=== PATIENT | female | born 1965 | race Caucasian/White ===

== ENCOUNTER 2018-11-05 20:14 | Inpatient (IN) | payer OTHER ==
[2018-11-05] MEDS ORDERED: IPRATROPIUM/ALBUTEROL 3 ML DEYVIAL IH ONE (20:24)
[2018-11-05] MEDS ORDERED: NS 1,000 ML IV ONE (20:27)
[2018-11-05 20:51] LABS: PLATELET COUNT 183 10^3/uL (150-400)
--- NOTE | 2018-11-05 21:04 | EDPHY ---
HPI/HX/ROS/PE/MDM Narrative: CHIEF COMPLAINT: Difficulty breathing HPI: This patient is a 52 year old female with history of asthma, diabetes, hypertension. She has recently been feeling unwell with cold symptoms. She endorses a productive cough with "foamy white phlegm". This morning, she began to have difficulty breathing. This worsened throughout the day. She took her inhaler as prescribed, but this did not relieve her symptoms so she called for EMS. She endorses some mild chest tightness associated with her difficulty breathing. She denies any recent hospitalizations for asthma. She denies fever. She does note that "its been a while since I've taken my medicines" as she has been under considerable stress at home while caring for family members. She denies any recent trauma. No nausea, vomiting, diarrhea, dysuria, headache, or other associated symptoms. REVIEW OF SYSTEMS: A comprehensive 10 system review of systems is otherwise negative aside from elements mentioned in the history of present illness and medical decision making. PMH: Asthma, diabetes, hypertension SOCIAL HISTORY: PHYSICAL EXAM: General:Patient is alert, in no acute distress. ENT:Eyes are normal to inspection. ENT inspection normal. Neck: Normal inspection. Full range of motion. Respiratory: Poor air movement with wheezes bilaterally and accessory muscle use. Cardiovascular: Regular rate and rhythm. Strong peripheral pulses. Normal cap refill. Abdomen:The abdomen is nontender to palpation. There are no peritoneal signs. There are normal bowel sounds. Back: Normal to inspection. No tenderness to palpation. Skin: Normal color. Hirsutism. No rash. Warm and dry. Extremities: Normal appearance. Full range of motion. Neuro: Oriented x3. Normal motor function. Normal sensory function. ED Course: 52 y/o female with history of asthma, hypertension, diabetes presents with difficulty breathing. On exam, the patient has poor air movement with wheezes bilaterally and accessory muscle use. Patient's SpO2 was initially 78% on room air. This has improved to 91% with supplemental oxygen. Plan for chest x-ray, i- stat chemistries. Plan for DuoNeb administration. On re-eval after initial nebs, air movement much better but significant wheeze. Additional albuterol neb ordered. RA sat 80%. CXR suggests early PNA. Patient lives in car and has only minimal access to O2. I think she would benefit from overnight hospital admission. I have treated her with solumedrol and azithromycin. - Data Points Imaging Results: Imaging Impressions Chest X-Ray 11/05/18 20:27 Impression: 1. Mild cardiac silhouette enlargement. 2. Peribronchial thickening and a suspected early infiltrate at the right lung base. 3. Sequela of old granulomatous disease. Laboratory Results: Laboratory Results 11/05/18 20:30 11/05/18 20:30 11/05/18 11/05/18 11/05/18 20:48 20:30 20:30 WBC 10.39 10^3/uL H 10^3/uL (3.80-9.50) RBC 5.57 10^6/uL H 10^6/uL (4.18-5.33) Hgb 17.2 g/dL H g/dL (12.6-16.3) POC Hgb 19.0 gm/dL H gm/dL (12.6-16.3) Hct 52.2 % H % (38.0-47.0) POC Hct 56 % H % (38-47) MCV 93.7 fL fL (81.5-99.8) MCH 30.9 pg pg (27.9-34.1) MCHC 33.0 g/dL g/dL (32.4-36.7) RDW 17.3 % H % (11.5-15.2) Plt Count 183 10^3/uL 10^3/uL (150-400) MPV 11.8 fL H fL (8.7-11.7) Neut % (Auto) 65.3 % % (39.3-74.2) Lymph % (Auto) 26.4 % % (15.0-45.0) [place] % (Auto) 4.9 % % (4.5-13.0) Eos % (Auto) 1.6 % % (0.6-7.6) Baso % (Auto) 1.2 % % (0.3-1.7) Nucleat RBC Rel Count 0.0 % % (0.0-0.2) Absolute Neuts (auto) 6.79 10^3/uL H 10^3/uL (1.70-6.50) Absolute Lymphs (auto) 2.74 10^3/uL 10^3/uL (1.00-3.00) Absolute Monos (auto) 0.51 10^3/uL 10^3/uL (0.30-0.80) Absolute Eos (auto) 0.17 10^3/uL 10^3/uL (0.03-0.40) Absolute Basos (auto) 0.12 10^3/uL H 10^3/uL (0.02-0.10) Absolute Nucleated RBC 0.00 10^3/uL 10^3/uL (0-0.01) Immature Gran % 0.6 % % (0.0-1.1) Immature Gran # 0.06 10^3/uL 10^3/uL (0.00-0.10) POC Sodium 137 mEq/L mEq/L (135-145) Sodium 132 mEq/L L mEq/L (135-145) POC Potassium 5.1 mEq/L H mEq/L (3.3-5.0) Potassium 5.4 mEq/L H mEq/L (3.5-5.2) POC Chloride 99 mEq/L mEq/L (97-110) Chloride 99 mEq/L mEq/L (97-110) Carbon Dioxide 25 mEq/l mEq/l (22-31) POC Total CO2 28 mEq/L mEq/L (22-31) Anion Gap 8 mEq/L mEq/L (6-14) POC BUN 13 mg/dL mg/dL (7-23) BUN 14 mg/dL mg/dL (7-23) Creatinine 0.7 mg/dL mg/dL (0.6-1.0) POC Creatinine 0.8 mg/dL mg/dL (0.6-1.0) Estimated GFR > 60 Glucose 189 mg/dL H mg/dL (70-100) POC Glucose 192 mg/dL H mg/dL (70-100) Calcium 9.7 mg/dL mg/dL (8.5-10.4) Medications Given: Discontinued Medications Albuterol (Proventil Neb) 3 ml IH EDNOW ONE Stop: 11/05/18 21:14 Last Admin: 11/05/18 21:19 Dose: 3 ml Albuterol/Ipratropium (Duoneb) 6 ml IH EDNOW ONE Stop: 11/05/18 20:25 Last Admin: 11/05/18 20:26 Dose: 6 ml Azithromycin (Zithromax) 500 mg PO EDNOW ONE PRN Reason: Protocol Stop: 11/05/18 21:23 Last Admin: 11/05/18 21:43 Dose: 500 mg Sodium Chloride (Ns) 1,000 mls @ 0 mls/hr IV ONCE ONE; Wide Open PRN Reason: Protocol Stop: 11/05/18 20:28 Last Admin: 11/05/18 20:42 Dose: 1,000 mls Methylprednisolone Sodium Succinate (Solu-Medrol) 125 mg IVP EDNOW ONE Stop: 11/05/18 21:15 Last Admin: 11/05/18 21:19 Dose: 125 mg Point of Care Test Results: Chemistry 11/05/18 20:48 POC Sodium 137 mEq/L mEq/L (135-145) POC Potassium 5.1 mEq/L H mEq/L (3.3-5.0) POC Chloride 99 mEq/L mEq/L (97-110) POC Total CO2 28 mEq/L mEq/L (22-31) POC BUN 13 mg/dL mg/dL (7-23) POC Creatinine 0.8 mg/dL mg/dL (0.6-1.0) POC Glucose 192 mg/dL H mg/dL (70-100) ISTAT H&H 11/05/18 20:48 POC Hgb 19.0 gm/dL H gm/dL (12.6-16.3) POC Hct 56 % H % (38-47) General Time Seen by Provider: 11/05/18 20:23 Initial Vital Signs: Initial Vital Signs Temperature (C) 36.8 C 11/05/18 20:21 Heart Rate 77 11/05/18 20:21 Respiratory Rate 20 11/05/18 20:21 O2 Sat (%) 78 L 11/05/18 20:21 O2 Delivery Mode Nasal Cannula O2 (L/minute) 5 Allergies/Adverse Reactions: No Known Allergies Allergy (Unverified 11/05/18 20:23) Home Medications: Medication Instructions Recorded Azithromycin [Zithromax] 250 mg PO DAILY #6 tab 11/05/18 Departure - Departure Disposition: [facility] Inpatient Acute Clinical Impression: Pneumonia, Exacerbation of asthma Condition: Fair Prescriptions: Azithromycin [Zithromax] 250 mg PO DAILY #6 tab Report Scribed for: Ayo Pereira Report Scribed by: Keshia Crenshaw Date of Report: 11/05/18 Time of Report: 21:04 Physician Review and Approval Statement: Portions of this note were transcribed by an ED scribe. I personally performed the history, physical exam, and medical decision making; and confirm the accuracy of the information in the transcribed note.
[2018-11-05] MEDS ORDERED: ALBUTEROL 3 ML DEYVIAL IH ONE (21:13)
[2018-11-05] MEDS ORDERED: methylPREDNISolone SOD SUCC 125 MG/2 ML VIAL IVP ONE (21:14)
[2018-11-05] MEDS ORDERED: AZITHROMYCIN 250 MG TAB PO ONE (21:22)
[2018-11-05] MEDS ORDERED: ACETAMINOPHEN 325 MG TAB PO PRN (23:13)
[2018-11-05] MEDS ORDERED: ONDANSETRON DISINTEGRATING 4 MG TAB PO PRN (23:13)
[2018-11-05] MEDS ORDERED: diphenhydrAMINE 25 MG CAP PO PRN (23:13)
[2018-11-05] MEDS ORDERED: ONDANSETRON 4 MG/2 ML VIAL IVP PRN (23:13)
[2018-11-05] MEDS ORDERED: NS 1,000 ML IV SCH (23:15)
[2018-11-05] MEDS ORDERED: guaiFENesin 600 MG TAB.ER PO PRN (23:20)
[2018-11-05] MEDS ORDERED: BENZONATATE 100 MG CAP PO PRN (23:20)
[2018-11-06] MEDS ORDERED: D50W 25 GM/50 ML SYR IVP PRN (03:52)
[2018-11-06] MEDS ORDERED: hydrALAZINE 10 MG TAB PO PRN (03:53)
[2018-11-06] MEDS: LISINOPRIL 10 MG TAB PO SCH ×2 (04:18→09:48)
[2018-11-06 04:40] LABS: PLATELET COUNT 139 10^3/uL (150-400)
--- NOTE | 2018-11-06 05:19 | GHP ---
[f rep st] HISTORY AND PHYSICAL DATE OF ADMISSION: 11/05/2018 The patient without PCP. She recently located to [place] from [place] with her adult son. EMR was arsh sprague and case discussed with accepting hospitalist. CHIEF COMPLAINT: Shortness of breath and cough. HISTORY OF PRESENT ILLNESS: A very pleasant 52-year-old female with past medical history significant for asthma, diabetes, depression, stress response, HTN, HLD, who [facility] with complaints of several days of coughing that is nonproductive. Patient denies any fever s or chills. She reports some coughing of clear white sputum. She has been utilizing Mucinex over-t he-counter with improvement in nasal congestion. She denies any known sick contacts. No fevers or c hills. No nausea, vomiting or diarrhea. Patient was using her inhaler without significant improveme nt in her symptoms. Her respiratory status continued to worsen and she presented to the emergency de partment as she felt she could not breathe. In the emergency department, the patient was noted to be saturating in the 80s on room air. She does not typically wear any oxygen at home. She did improve with placement on 4 L per minute. Patient c urrently without a permanent address. She is living out of her car with her son as she just recently relocated from [place] while she waits for a disability check. REVIEW OF SYSTEMS: 10 systems reviewed, negative except as noted above. ALLERGIES: No known drug allergies. HOME MEDICATIONS: Med rec is not yet reconciled. The patient does note that for blood pressure, she takes lisinopril 10 mg, amlodipine 10 mg. PAST MEDICAL HISTORY: Significant for diabetes, depression, carpal tunnel syndrome, HTN, HLD, asthma without any history of intubation, but does have a remote history of hospitalization. PAST SURGICAL HISTORY: Significant for carpal tunnel release. FAMILY HISTORY: On mother's side, there are family members with breast cancer and CKD. Patient's mo ther had a diagnosis of asthma. Father with history of diabetes. SOCIAL HISTORY: The patient again has currently relocated from [place], living with her son in a car while she awaits her disability check and son's check from for housing. She does smoke to [place], but she reports she is a "stress smoker," today only smoked 1 cigarette. She denies any illic it drug use. No alcohol abuse. CODE STATUS: Full. PHYSICAL EXAMINATION: VITAL SIGNS: Upon arrival to the emergency department, blood pressure 152/100 , heart rate 77, respiratory rate 20, O2 sat 78% on room air with a temperature of 36.8. Vital signs currently available: Blood pressure 167/118, heart rate 73, respiratory rate 20, O2 sat % on 4 L nasal cannula, temperature 36.6. GENERAL: No acute distress, pleasant, morbidly obese femjaja cowan, who is laying quietly on her right side. She does have some increased work of breathing, but is a ble to speak in full sentences. She has a nasal cannula in place. HEENT: Head: Normocephalic/atra umatic. Eyes: Extraocular muscles grossly intact. Pupils are equal, round, and reactive to light b ilaterally and symmetric. No scleral icterus or conjunctival injection. ENT: Mucous membranes appe ar moist. No pharyngeal erythema or exudates. Dentition in fair condition. CARDIOVASCULAR: Regula r rate and rhythm without any murmurs, rubs or gallops appreciated. tenderness to palpati on. RESPIRATORY: Patient with significantly diminished air movement bibasilarly. She does have ins piratory, expiratory wheezing on the anterior upper lung johnson. ABDOMEN: Obese, soft, nontender to palpation. No rebound, guarding or mass appreciated. Positive bowel sounds. : No suprapubic te nderness to palpation. No Moraes catheter in place. MUSCULOSKELETAL: Strength grossly intact, 4/5 t o 5/5 in upper and lower extremities, bilaterally and symmetric. NEUROLOGIC: Grossly nonfocal, no f acial droop. Moves all extremities. LABORATORY STUDIES: WBC 10.39, H and H 17.2 and 52.2, MCV of 93.7, platelet count 183, neutrophil pe rcent normal. Sodium is 132, potassium 5.4, chloride is 99, CO2 is 25, anion gap of 8, BUN 14, creat inine 0.7, GFR greater than 60, glucose 189, calcium 7.7. Chest x-ray: Image report reviewed by myself. Mild cardiac silhouette enlargement. Peribronchiolar thickening and a suspected early infiltrate in the right lung base. Sequelae of old granulomatous d isease. 1. Right lower lobe pneumonia. Patient without significant leukocytosis. She has been afebrile. N o significant production of sputum. We will check a procalcitonin in the morning. For now, continue patient's azithromycin and Rocephin. She is at higher risk for secondary infection, so she would li von benefit from continued antibiotic use for a few more days. 2. Asthma with exacerbation. Continue steroids, nebulizers, oxygen p.r.n. 3. Hypoxia. No large consolidations. Continue to titrate patient's oxygen. She is down now from 5 to 4. Discussed with the patient that at this point, it would likely be difficult to obtain oxygen for her to discharge early. I did request Case Management and Social Work consultation to see what i s available. We will continue to titrate down on O2 requirements if possible to maintain sats greate r than 90. 4. Benign essential hypertension. Blood pressure is slightly elevated likely related to steroids, n ebulizer treatments. 5. Hyperlipidemia. Resume home medications when ready. 6. Fluids, electrolytes, nutrition. Additional IV fluids overnight for 1 bag. Advance diet in the morning. Electrolytes will be monitored, replaced as needed. 7. Code status full. The patient would like to have a conversation with her son before making that determination. She reports that if it was just her, then she would opt to be a do not resuscitate/do not intubate. She will let us know what her decision is. I did offer to have [facility] and/o r additional discussion when the son is here as patient reports she is finding it difficult to figure out how to have this conversation. 8. Disposition. Patient admitted to observation status on the Med/Surg floor pending repeat evaluat ion later this morning and improvement. /[id number]/MODL
[2018-11-06] MEDS ORDERED: LISINOPRIL 10 MG TAB PO SCH (09:00)
[2018-11-06] MEDS: INSULIN LISPRO 100 UNIT/ML SC SCH ×4 (09:05→20:51)
[2018-11-06] MEDS: predniSONE 20 MG TAB PO SCH (09:47)
[2018-11-06] MEDS: ENOXAPARIN 40 MG/0.4 ML SYR SC SCH (09:48)
[2018-11-06] MEDS: ALBUTEROL 3 ML DEYVIAL IH PRN ×3 (09:56→22:10)
[2018-11-06] MEDS ORDERED: ALBUTEROL 60 PUFFS/8 GM MDI IH PRN (10:45)
--- NOTE | 2018-11-06 10:49 | HOSPPROG ---
Hospitalist Progress Note Assessment/Plan: 52y female with c/o SOB. #PNA -cont abx #SOB -supportive care #Asthma exac -steriods, nebs #Acute hypoxia -multifactorial -cont support #HTN -stable #Dispo -unclear -needs supportive care Subjective: Still SOB. Objective: Vital Signs Temp Pulse Resp BP Pulse Ox 36.7 C 63 20 147/94 H 93 11/06/18 07:49 11/06/18 09:57 11/06/18 09:57 11/06/18 07:49 11/06/18 09:57 Laboratory Results 11/06/18 04:17 11/06/18 04:17 11/05/18 11/06/18 11/07/18 05:59 05:59 05:59 Intake Total 2000 Balance 1999 - Physical Exam Constitutional: not in pain, obese Eyes: PERRL, anicteric sclera Ears, Nose, Mouth, Throat: moist mucous membranes, hearing normal Cardiovascular: edema, No JVD Respiratory: reduced air movement, expiratory wheeze Gastrointestinal: No tenderness, No ascites Skin: warm, normal color Musculoskeletal: generalized weakness Neurologic: AAOx3 Psychiatric: not anxious, not encephalopathic ICD10 Worksheet Patient Problems: Problems Problem Status Onset Pneumonia Acute Exacerbation of asthma Acute
--- NOTE | 2018-11-06 14:50 | ASMTCMCOM ---
JESSICA Note CM Note Notes: Met with pt in her room. Pt confirms that she is currently homeless following a move from [place] and lives in her car with her 23-year-old son, Isacc Burger [phone]. She states that she is waiting for her next disability check to arrive and that this is the reason she is currently homeless. Disability checks are her only means of income. Pt describes son as supportive but rest of family (in [place]) as "not good for my mental health" which is why she left the state. Pt states that the nature of her disability is her asthma and her "useless" left hand that she says was damaged during surgery for carpal tunnel syndrome. Pt uses 2.5L of O2 at night normally, but in [place] she has noticed that she also sometimes needs it during the day. She has been filling up her O2 concentrator at a gas station. She does not use a CPAP. She uses Metformin and not insulin for her diabetes. Pt states that she is able to get herself around town without issue, as she owns a car and is able to drive. CM provided pt with phone number and address for [employer] and explained that they can help get her started on obtaining services while she is homeless. JESSICA made a follow-up appt with Dr.Carla Cobb on November 12 at 9:30 am for this pt. Pt is independent in ADLs. Anticipates she will discharge with support of her son when medically stable. JESSICA D/C plan: Independent Date Signed: 11/06/2018 02:49 PM Electronically Signed By:Rupali De Leon
--- NOTE | 2018-11-06 19:53 | PDMN ---
Medical Necessity Medical necessity: Change to inpt as of 11/06/18 @ 15:36, meets inpt criteria per [employer] order and MCG M-282, Pneumonia, A-2 days, inpt admission is indicated for: hypoxemia, patient without baseline need for supplemental oxygen who now requires supplemental oxygen to keep SaO2 greater than 90%. 52 y/o initially admitted as OBS w/RLL PNA and asthma exacerbation, upgraded to inpt for persistent and acute hypoxia/SOB still requiring 4 LO2, cont IV ABX's as pt is at higher risk for secondary infection, and supportive care. PMHx includes asthma, diabetes, depression, stress response, HTN, HLD, and currently living out of car. Est LOS>2MN for ongoing med nec management of above.
[2018-11-06] MEDS: AZITHROMYCIN IV 500 MG in NS 250 ML IV SCH (20:53)
[2018-11-07] MEDS: ALBUTEROL 3 ML DEYVIAL IH PRN ×4 (05:30→16:44)
[2018-11-07] MEDS: predniSONE 20 MG TAB PO SCH (09:07)
[2018-11-07] MEDS: ENOXAPARIN 40 MG/0.4 ML SYR SC SCH (09:08)
[2018-11-07] MEDS: INSULIN LISPRO 100 UNIT/ML SC SCH ×4 (09:08→21:43)
[2018-11-07] MEDS: LISINOPRIL 10 MG TAB PO SCH (09:08)
--- NOTE | 2018-11-07 12:54 | HOSPPROG ---
Hospitalist Progress Note Assessment/Plan: Patient is a 52-year-old female who presented the emergency room with shortness of breath and noted to have oxygen levels at 78% on room air. 1st encounter chart reviewed. * right lower lobe pneumonia -started treatment with azithromycin (has received 3 doses as of today) and ceftriaxone -Procalcitonin level is low at 0.05 -chest x-ray shows a mild cardiac silhouette enlargement. She has peribronchial thickening and a suspected early infiltrate on the right lung base -she is requiring 4 L of oxygen * asthma with exacerbation -on steroids and nebulizer treatments -decrease prednisone to 40 mg daily * hypoxia -she has been on oxygen at night in the past -moved here from [place] and has been living in her car, doesn't have access to oxygen -when asked what her diagnosis is for oxygen, she is unaware * hyperlipidemia -statin therapy * DM with hyperglycemia -on sliding scale -glucoses high due to steroids -on Metformin * hypertension -bp stable * hyponatremia *homelessness: lives in her car with her son. He is doing meal deliveries to make money. She gets her disability check today. She is going to look at a place to live. Will be difficult to arrange for oxygen at dc until she has a residence. Subjective: Yessica is feeling better today after getting antibiotics. Objective: Vital Signs Temp Pulse Resp BP Pulse Ox 36.7 C 70 16 136/93 H 96 11/07/18 11:39 11/07/18 11:39 11/07/18 11:39 11/07/18 11:39 11/07/18 11:39 11/06/18 11/07/18 11/08/18 05:59 05:59 05:59 Intake Total 500 Balance 500 - Physical Exam Constitutional: chronically ill appearing, obese Eyes: PERRL Ears, Nose, Mouth, Throat: hearing normal Cardiovascular: regular rate and rhythym Respiratory: no respiratory distress, reduced air movement, other (poor expiratory phase) Skin: warm Musculoskeletal: generalized weakness Neurologic: AAOx3 Psychiatric: interacting appropriately ICD10 Worksheet Patient Problems: Problems Problem Status Onset Exacerbation of asthma Acute Pneumonia Acute
[2018-11-07] MEDS: IPRATROPIUM/ALBUTEROL 3 ML DEYVIAL IH SCH (16:47)
[2018-11-07] MEDS: AZITHROMYCIN IV 500 MG in NS 250 ML IV SCH (21:43)
[2018-11-08] MEDS: IPRATROPIUM/ALBUTEROL 3 ML DEYVIAL IH SCH ×3 (00:06→12:37)
[2018-11-08] MEDS: INSULIN LISPRO 100 UNIT/ML SC SCH ×2 (07:59→12:14)
[2018-11-08] MEDS ORDERED: predniSONE 20 MG TAB PO SCH (09:00)
[2018-11-08] MEDS ORDERED: CETIRIZINE 10 MG TAB PO SCH (09:00)
[2018-11-08] MEDS: LISINOPRIL 10 MG TAB PO SCH (09:10)
[2018-11-08] MEDS: ENOXAPARIN 40 MG/0.4 ML SYR SC SCH (09:11)
[2018-11-08 11:51] VITALS: BP 153/90
--- NOTE | 2018-11-08 11:55 | HOSPPROG ---
Hospitalist Progress Note Assessment/Plan: Patient is a 52-year-old female who presented the emergency room with shortness of breath and noted to have oxygen levels at 78% on room air. 1st encounter chart reviewed. * right lower lobe pneumonia -started treatment with azithromycin (has received 3 doses as of today) and ceftriaxone -Procalcitonin level is low at 0.05 -chest x-ray shows a mild cardiac silhouette enlargement. She has peribronchial thickening and a suspected early infiltrate on the right lung base -she is requiring 4 L of oxygen -has a concentrator in her care * asthma with exacerbation -on steroids and nebulizer treatments -decrease prednisone to 40 mg daily * hypoxia -she has been on oxygen at night in the past -moved here from [place] and has been living in her car * hyperlipidemia -statin therapy * DM with hyperglycemia -on sliding scale -glucoses high due to steroids -on Metformin * hypertension -bp stable -lisinopril and Norvasc * hyponatremia *homelessness:lives in her car *plan: she is still quite hypoxic and recommendation is for her to stay in the hospital. Have encouraged her to stay. May leave any ways AMA, but will still give her medications for treatment. She has an appt w a PCP on November 12. Subjective: Yessica is feeling better overall but is still hypoxic when walking to the bathroom. Objective: Vital Signs Temp Pulse Resp BP Pulse Ox 36.8 C 76 16 153/90 H 91 L 11/08/18 11:51 11/08/18 11:51 11/08/18 11:51 11/08/18 11:51 11/08/18 11:51 11/07/18 11/08/18 11/09/18 05:59 05:59 05:59 Intake Total 500 400 Balance 500 400 - Physical Exam Constitutional: chronically ill appearing, obese Eyes: PERRL Ears, Nose, Mouth, Throat: hearing normal Cardiovascular: regular rate and rhythym Respiratory: reduced air movement (mid lobes down) Skin: warm Musculoskeletal: full muscle strength Neurologic: AAOx3 Psychiatric: interacting appropriately ICD10 Worksheet Patient Problems: Problems Problem Status Onset Exacerbation of asthma Acute Pneumonia Acute
--- NOTE | 2018-11-08 15:26 | GDS ---
[f rep st] DISCHARGE SUMMARY DISCHARGE DIAGNOSES: 1. Right lower lobe pneumonia. 2. Asthma with exacerbation. 3. Hypoxemia. 4. Hyperlipidemia. 5. Diabetes with hyperglycemia. 6. Hypertension. 7. Hyponatremia. 8. Homelessness. HISTORY OF PRESENT ILLNESS: Briefly, the patient is a very nice 52-year-old woman who is from the [facility]. She recently moved here with her son due to family issues. They do not have a place to live and she has been living in her car. She has a past medical history significant for asthma, diabetes, depression, hypertension, hyperlipidemia. She had several days of coughing that have been nonproductive without any fevers or chills. She kept using her inhaler without any significant improvement. She was treated with azithromycin and ceftriaxone. RECOMMENDATION: Was for the patient to stay today because her oxygen requirements were still elevated. She declined and decided to go AMA. She was provided with prescriptions out of concern for treatment of her pneumonia. She also has an appointment with a followup care provider. I asked nursing staff to do discharge instructions. Encouraged her to return to the Emergency room if she has worsening shortness of breath. /[id number]/MODL MTDD
--- NOTE | 2018-11-08 16:22 | ASDISCHSUM ---
Discharge Information Plan Status:Home with No Needs Medically Cleared to Leave:11/08/2018 Discharge Date:11/08/2018 02:34 PM CM D/C Disposition:Against Medical Advice ADT D/C Disposition:Against Medical Advice Projected Discharge Date:11/08/2018 02:34 PM Transportation at D/C:Self Discharge Delay Reason: Follow-Up Date:11/08/2018 02:34 PM Discharge Slot: Final Diagnosis: Placement Information Patient Contact Information Contact Name:MORGAN Relationship:Son Address:[address] Work Phone: City:[place] Alternate Phone: [facility]/Zip Code:[place] [address] Email: Financial Information Financial Class:Medicare Advantage Plans Primary Plan Desc:[employer]ARE ADVANTAGE Primary Plan Number:[id number] Secondary Plan Desc: Secondary Plan Number: Assessment Information LACE LACE Length of stay for Answers: 2 days current admission Acuity / Level of Answers: Yes Care: Did the patient have an inpatient admission? Comorbidities - select Answers: Diabetes (uncontrolled or all that apply controlled) Other Notes: HTN; HLD # of Emergency department Answers: 1-2 visits in the last 6 months Social determinants Answers: Mental health diagnosis (anxiety, depression, pers onality disorders, etc.) Score: 11 Date Signed: 11/08/2018 04:19 PM Electronically Signed By:KATIE Bryant [facility] JESSICA Progress Note CM Note CM Note Notes: Met with pt in her room. Pt confirms that she is currently homeless following a move from [place] and lives in her car with her 23-year-old son, Isacc Burger [phone]. She states that she is waiting for her next disability check to arrive and that this is the reason she is currently homeless. Disability checks are her only means of income. Pt describes son as supportive but rest of family (in [place]) as "not good for my mental health" which is why she left the state. Pt states that the nature of her disability is her asthma and her "useless" left hand that she says was damaged during surgery for carpal tunnel syndrome. Pt uses 2.5L of O2 at night normally, but in [place] she has noticed that she also sometimes needs it during the day. She has been filling up her O2 concentrator at a gas station. She does not use a CPAP. She uses Metformin and not insulin for her diabetes. Pt states that she is able to get herself around town without issue, as she owns a car and is able to drive. CM provided pt with phone number and address for [facility] and explained that they can help get her started on obtaining services while she is homeless. JESSICA made a follow-up appt with Dr.Carla Cobb on November 12 at 9:30 am for this pt. Pt is independent in ADLs. Anticipates she will discharge with support of her son when medically stable. JESSICA D/C plan: Independent Date Signed: 11/06/2018 02:49 PM Electronically Signed By:Rupali De Leon Case Management Discharge Plan Note Case Management Discharge Discharge Order Complete? Answers: Yes Patient to Obtain Answers: Independently Medications Transportation Arranged Answers: Family/Friends Discharge Comments Notes: Pt left AMA today. She has an appointment with a followup care provider. Date Signed: 11/08/2018 04:20 PM Electronically Signed By:KATIE Bryant Intervention Information
== END 2018-11-08 14:34 | disposition left against medical advice (07) | DRG 194 ==
LOC: F3E 22:27 → OBSVTOIN 11-06 15:36
PROVIDERS: ADMIT Family Medicine; ATTEND Internal Medicine
DX: J18.1 Lobar pneumonia, unspecified organism (principal); J45.901 Unspecified asthma with (acute) exacerbation; E87.1 Hypo-osmolality and hyponatremia; Z59.0 Homelessness; E86.9 Volume depletion, unspecified; R09.02 Hypoxemia; E11.65 Type 2 diabetes mellitus with hyperglycemia; I10 Essential (primary) hypertension; F32.9 Major depressive disorder, single episode, unspecified; E78.5 Hyperlipidemia, unspecified
CPT/HCPCS: 82435-PO; 82565-PO; 82947-PO; 84132-PO; 84295-PO; 84520-PO; 85014-ER; 96365; G0378; J0456; J0696; J1650; J1815; J2930; J7512; J7613

== ENCOUNTER 2018-11-12 11:31 | Inpatient (IN) | payer OTHER ==
[2018-11-12] MEDS ORDERED: methylPREDNISolone SOD SUCC 125 MG/2 ML VIAL IVP ONE (11:52)
--- NOTE | 2018-11-12 11:52 | EDPHY ---
H & P Stated Complaint: cough, SOB, hypoxia - Personal History Current Tetanus/Diphtheria Vaccine: Unsure Current Tetanus Diphtheria and Acellular Pertussis (TDAP): Unsure - Medical/Surgical History Hx Asthma: Yes Hx Chronic Respiratory Disease: Yes Hx Diabetes: Yes Hx Cardiac Disease: No Hx Renal Disease: No Hx Cirrhosis: No Hx Alcoholism: No Hx HIV/AIDS: No Hx Splenectomy or Spleen Trauma: No Other PMH: DM, depression, carpal tunnel, HTN, hyperlipidemia, asthma, COPD - Social History Smoking Status: Current every day smoker <Jana Almaguer Baylee - Last Filed: 11/12/18 14:24> <Favio Smith - Last Filed: 11/12/18 15:10> Time Seen by Provider: 11/12/18 11:42 HPI/ROS: CHIEF COMPLAINT: Continued dyspnea HISTORY OF PRESENT ILLNESS: 52-year old homeless woman was admitted to the hospital for pneumonia, asthma exacerbation, hypoxemia and left against medical advice for days ago due to social issues, returns to the ER via private vehicle. She initially went to an appointment at [facility] where she was noted to have pulse oxygenation in the 60s and encouraged to return to the ER for admission. She returns to the hospital. She agrees to stay in the hospital.. She is complaining of continued cough and dyspnea. Denies: Chest pain, back pain, fever, chills, flu-like symptoms. PRIMARY CARE PROVIDER: None REVIEW OF SYSTEMS: 10 systems reviewed and negative with the exception of the elements mentioned in the history of present illness PAST MEDICAL & SURGICAL HISTORY: Recent pneumonia. Asthma. Hyperlipidemia. Diabetes. Hypertension. Homelessness. SOCIAL HISTORY: Homeless, living in her car with 23-year-old son . Daily tobacco use. PHYSICAL EXAM (Prior to examination, patient consented to physical exam, hands were washed and my usual and customary physical exam procedures followed) 1) GENERAL: Well-developed, well-nourished, alert and oriented. Answering questions appropriately. Smiling. 2) HEAD: Normocephalic, atraumatic 3) HEENT: Pupils equal, round, reactive to light bilaterally. Sclera anicteric. Nasopharynx, oropharynx, clear, no lesions. Dry mucous membranes. 4) NECK: Full range of motion, no meningeal signs. 5) LUNGS: decreased breath sounds bilaterally, no retractions, shortened sentences secondary to dyspnea. 6) HEART: Regular rate and rhythm, no murmur, no heave, no gallop. 7) ABDOMEN: No guarding, no rebound, no focal tenderness, negative McBurney's, negative Hickey's, negative Rovsing's, negative peritoneal sign, 8) MUSCULOSKELETAL: Moving all extremities, no focal areas of tenderness, no obvious trauma. No peripheral edema or discoloration. 9) BACK: No CVA tenderness, no midline vertebral tenderness, no fluctuance, no step-off, no obvious trauma, no visual or palpable abnormality. 10) SKIN: No rash, no petechiae. 11) Psychiatric: Patient is oriented X 3, there is no agitation. DIFFERENTIAL DIAGNOSIS: In no particular order including but not limited to COPD exacerbation, pneumonia, pneumothorax (Jana Almaguer) Constitutional: Initial Vital Signs Temperature (C) 37.2 C 11/12/18 11:37 Heart Rate 85 11/12/18 11:37 Respiratory Rate 30 H 11/12/18 11:37 Blood Pressure 176/87 H 11/12/18 11:37 O2 Sat (%) 66 L 11/12/18 11:37 O2 Delivery Mode Room Air O2 (L/minute) 3 Allergies/Adverse Reactions: No Known Allergies Allergy (Verified 11/12/18 11:34) Home Medications: Medication Instructions Recorded Albuterol [Proventil Inhaler HFA 1 - 2 puffs IH Q4H PRN 11/06/18 (*)] Cetirizine [ZyrTEC 10 mg (*)] 10 mg PO DAILY tab 11/08/18 Lisinopril [Zestril 10 mg (*)] 10 mg PO DAILY #10 11/08/18 amLODIPine BESYLATE [Norvasc 10 mg 10 mg PO DAILY #10 tab 11/08/18 (*)] Ipratropium/Albuterol [Duoneb (*)] 3 ml IH QID PRN 11/12/18 metFORMIN HCL [Glucophage 1000 mg] 1,000 mg PO BIDMEAL 11/12/18 Medical Decision Making <Jana Almaguer - Last Filed: 11/12/18 14:24> - Diagnostics Imaging: I viewed and interpreted images myself <Favio Smith - Last Filed: 11/12/18 15:10> - Diagnostics Imaging Results: Imaging Impressions Chest X-Ray 11/12/18 11:48 Impression: Bronchitis with stable indistinct right basilar opacity possibly related to atelectasis or pneumonia. Imaging Impressions Chest X-Ray 11/12/18 11:48 Impression: Bronchitis with stable indistinct right basilar opacity possibly related to atelectasis or pneumonia. Images reviewed myself (Jana Almaguer) ED Course/Re-evaluation: 12:23 p.m.: Old medical records have been reviewed . She left the hospital against medical advice few days ago. She remains symptomatic, pulse oxygenation on room air in the 60s. Sling given supplemental oxygen in the emergency department. Initiated on HCAP antibiotics given her recent admission , steroids, plan on hospital readmission. Consultation with hospitalist, Shandra , admit to Dr. Winston Mccarthy. Care of patient under supervision of secondary supervising physician Dr Smith . (Jana Almaguer) Other Provider: PHYSICIAN DOCUMENTATION: The patient was evaluated and managed by the Physician Flight Attendant and myself. I have reviewed the chart and agree with the findings and plan of care as documented. In addition, I examined the patient myself at 1200. History confirmed as recent discharge from hospital 4 days ago, worsening shortness of breath today. Physical findings as follows: Dry tongue, decreased breath sounds bilaterally. Fluid bolus, broad-spectrum antibiotics for possible HCAP. Supplemental oxygen applied, 90s on nasal cannula. Readmission. 1237: Initial lactate 3.6, sepsis 30 mL/kilos fluid bolus ordered, repeat lactate drawn. However on arrival the patient does not have SIRS criteria with WBC less than 12, heart rate less than 90, afebrile. 12-lead EKG interpreted by me; official reading is in computer system. My interpretation is sinus rhythm with left atrial enlargement and nonspecific diffuse T-wave abnormalities rate 77. Did not develop hypotension. Critical care time spent by me, Dr. Smith, exclusively with the care of this patient was 15 minutes, exclusive of PA or BSW time and exclusive of separate procedures. The organ system at risk was pulmonary and I ordered supplemental oxygen IV antibiotics and IV fluids to stabilize the patient and prevent worsening of the patient's condition. I am the secondary supervising physician. (Smith,Favio S) - Data Points Laboratory Results: Laboratory Results 11/12/18 12:05 11/12/18 11:48 11/12/18 11/12/18 11/12/18 12:19 12:05 12:05 WBC RBC Hgb Hct MCV MCH MCHC RDW Plt Count MPV Neut % (Auto) Lymph % (Auto) [place] % (Auto) Eos % (Auto) Baso % (Auto) Nucleat RBC Rel Count Absolute Neuts (auto) Absolute Lymphs (auto) Absolute Monos (auto) Absolute Eos (auto) Absolute Basos (auto) Absolute Nucleated RBC Immature Gran % Immature Gran # PT INR APTT VBG Lactic Acid Sodium Potassium Chloride Carbon Dioxide Anion Gap BUN Creatinine Estimated GFR Glucose Hemoglobin A1c 9.2 % H % (4.0-6.0) Estim Average Glucose 217 mg/dL H mg/dL (68-126) Calcium Total Bilirubin POC Troponin I 0.00 ng/mL ng/mL (0.00-0.08) Procalcitonin 0.04 ng/mL ng/mL (0.02-0.10) 11/12/18 11/12/18 11/12/18 12:05 12:05 12:05 WBC 11.48 10^3/uL H 10^3/uL (3.80-9.50) RBC 5.79 10^6/uL H 10^6/uL (4.18-5.33) Hgb 17.9 g/dL H g/dL (12.6-16.3) Hct 53.7 % H % (38.0-47.0) MCV 92.7 fL fL (81.5-99.8) MCH 30.9 pg pg (27.9-34.1) MCHC 33.3 g/dL g/dL (32.4-36.7) RDW 16.6 % H % (11.5-15.2) Plt Count 191 10^3/uL 10^3/uL (150-400) MPV 12.2 fL H fL (8.7-11.7) Neut % (Auto) 65.4 % % (39.3-74.2) Lymph % (Auto) 27.7 % % (15.0-45.0) [place] % (Auto) 4.9 % % (4.5-13.0) Eos % (Auto) 1.0 % % (0.6-7.6) Baso % (Auto) 0.6 % % (0.3-1.7) Nucleat RBC Rel Count 0.2 % % (0.0-0.2) Absolute Neuts (auto) 7.50 10^3/uL H 10^3/uL (1.70-6.50) Absolute Lymphs (auto) 3.18 10^3/uL H 10^3/uL (1.00-3.00) Absolute Monos (auto) 0.56 10^3/uL 10^3/uL (0.30-0.80) Absolute Eos (auto) 0.12 10^3/uL 10^3/uL (0.03-0.40) Absolute Basos (auto) 0.07 10^3/uL 10^3/uL (0.02-0.10) Absolute Nucleated RBC 0.02 10^3/uL H 10^3/uL (0-0.01) Immature Gran % 0.4 % % (0.0-1.1) Immature Gran # 0.05 10^3/uL 10^3/uL (0.00-0.10) PT 13.4 SEC SEC (12.0-15.0) INR 1.06 (0.83-1.16) APTT 25.5 SEC SEC (23.0-38.0) VBG Lactic Acid 3.6 mmol/L H mmol/L (0.7-2.1) Sodium Potassium Chloride Carbon Dioxide Anion Gap BUN Creatinine Estimated GFR Glucose Hemoglobin A1c Estim Average Glucose Calcium Total Bilirubin POC Troponin I Procalcitonin 11/12/18 11:48 WBC RBC Hgb Hct MCV MCH MCHC RDW Plt Count MPV Neut % (Auto) Lymph % (Auto) [place] % (Auto) Eos % (Auto) Baso % (Auto) Nucleat RBC Rel Count Absolute Neuts (auto) Absolute Lymphs (auto) Absolute Monos (auto) Absolute Eos (auto) Absolute Basos (auto) Absolute Nucleated RBC Immature Gran % Immature Gran # PT INR APTT VBG Lactic Acid Sodium 136 mEq/L mEq/L (135-145) Potassium 3.9 mEq/L mEq/L (3.5-5.2) Chloride 93 mEq/L L mEq/L (97-110) Carbon Dioxide 30 mEq/l mEq/l (22-31) Anion Gap 13 mEq/L mEq/L (6-14) BUN 19 mg/dL mg/dL (7-23) Creatinine 0.8 mg/dL mg/dL (0.6-1.0) Estimated GFR > 60 Glucose 306 mg/dL H mg/dL (70-100) Hemoglobin A1c Estim Average Glucose Calcium 9.6 mg/dL mg/dL (8.5-10.4) Total Bilirubin 0.6 mg/dL mg/dL (0.1-1.4) POC Troponin I Procalcitonin Medications Given: Sodium Chloride (Ns) 1,000 mls @ 150 mls/hr IV CONT HALEY Stop: 11/13/18 19:54 Last Admin: 11/12/18 13:51 Dose: 1,000 mls Discontinued Medications Sodium Chloride (Ns) 2,300 mls @ 4,600 mls/hr 30 ml/kg infuse over 30 min ( 2300 ml) IV EDNOW ONE PRN Reason: Protocol Stop: 11/12/18 12:30 Last Admin: 11/12/18 12:32 Dose: 2,300 mls Piperacillin/Tazobactam/Dextrose (Zosyn (Premix)) 100 mls @ 200 mls/hr IV EDNOW ONE PRN Reason: Protocol Stop: 11/12/18 12:30 Last Admin: 11/12/18 12:42 Dose: 100 mls Methylprednisolone Sodium Succinate (Solu-Medrol) 125 mg IVP EDNOW ONE Stop: 11/12/18 11:53 Last Admin: 11/12/18 12:32 Dose: 125 mg Point of Care Test Results: Chemistry 11/12/18 12:19 POC Troponin I 0.00 ng/mL ng/mL (0.00-0.08) Departure <Jana Almaguer - Last Filed: 11/12/18 14:24> <Favio Smith - Last Filed: 11/12/18 15:10> - Departure Disposition: [facility] Acute Clinical Impression: Chronic obstructive pulmonary disease with acute exacerbation, Pneumonia Condition: Serious
[2018-11-12] MEDS ORDERED: PIPERACILLIN/TAZO 4.5 GM/DEX 100 ML IV ONE (12:01)
[2018-11-12] MEDS ORDERED: NS 2,300 ML IV ONE (12:01)
[2018-11-12 12:28] LABS: PLATELET COUNT 191 10^3/uL (150-400)
--- NOTE | 2018-11-12 12:51 | CPEKG ---
Test Reason : OPEN Blood Pressure : / mmHG Vent. Rate : 077 BPM Atrial Rate : 077 BPM P-R Int : 143 ms QRS Dur : 096 ms QT Int : 430 ms P-R-T Axes : 069 -74 -65 degrees QTc Int : 487 ms Sinus rhythm LAE, consider biatrial enlargement Left anterior fascicular block Abnormal T, consider ischemia, diffuse leads Confirmed by Favio Smith ([id number]) on 11/12/2018 12:50:36 PM Referred By: Favio Smith Confirmed By:Favio Smith
[2018-11-12 12:57] LABS: INR 1.06 (0.83-1.16); PROTIME(PATIENT) 13.4 SEC (12.0-15.0)
[2018-11-12] MEDS ORDERED: ONDANSETRON DISINTEGRATING 4 MG TAB PO PRN (13:04)
[2018-11-12] MEDS ORDERED: ONDANSETRON 4 MG/2 ML VIAL IVP PRN (13:04)
[2018-11-12] MEDS ORDERED: ACETAMINOPHEN 325 MG TAB PO PRN (13:04)
[2018-11-12] MEDS ORDERED: D50W 25 GM/50 ML SYR IVP PRN (13:06)
[2018-11-12] MEDS ORDERED: ALBUTEROL 60 PUFFS/8 GM MDI IH PRN (13:10)
--- NOTE | 2018-11-12 13:30 | PDGENHP ---
History and Physical - Chief Complaint Worsening hypoxia - History of Present Illness 52 y/o homeless female presents w/worsening hypoxia, continued occasional productive cough w/clear/yellow sputum and subjective fevers. She was admitted on 11/06 for PNA, COPD exacerbation and hypoxia but left AMA on 11/08 for social reasons (her son who she is living w/in a car thought he had found a living space and she needed to leave; the living space unfortunately did not work out) ; she initially went to [facility] and was noted to be in the 60s on RA. Endorses SOB, productive cough, subjective low-grade fevers. Denies CP, palpitations, nausea, vomiting, dysuria, constipation or diarrhea. She reports wearing 3L NC @ HS - she is unsure whether it is for her COPD or undiagnosed sleep apnea. She is being admitted for further work-up, treatment and monitoring. History Information - Allergies/Home Medication List Allergies/Adverse Reactions: No Known Allergies Allergy (Verified 11/12/18 11:34) Home Medications: Albuterol [Proventil Inhaler HFA (*)] 1 - 2 puffs IH Q4H PRN 11/06/18 [Last Taken 11/12/18] Ipratropium/Albuterol [Duoneb (*)] 3 ml IH QID PRN 11/12/18 [Last Taken 11/12/18 ] metFORMIN HCL [Glucophage 1000 mg] 1,000 mg PO BIDMEAL 11/12/18 [Last Taken 01/23 18:00] I have personally reviewed and updated: family history, medical history, social history, surgical history - Past Medical History asthma, COPD, diabetes type 2, hypertension, hyperlipidemia Additional medical history: Depression - Surgical History Additional surgical history: Carpal tunnel release - Family History Positive for: cancer, diabetes type II - Social History Smoking Status: Current every day smoker Tobacco Use: Cigarettes, Less than 1 pack/day Alcohol Use: None Drug Use: None Additional social history: Moved from [place] to [place] 2 weeks ago to get away from "family BS." Both parents have recently passed. Living in a car w/ her 23 y/o son. Review of Systems Review of Systems: ROS: 10pt was reviewed & negative except for what was stated in HPI & below Physical Exam Physical Exam: Lab data and imaging were reviewed. White blood cell count: 11.48 Hemoglobin hematocrit: 17.9 and 53.7 Platelet count: 191 Sodium: 136 Potassium: 3.9 Chloride: 93 Carbon dioxide: 30 BUN/Cr: 1/0.8 Lactic acid: 3.6 Troponin: 0.00 Chest x-ray: Bronchitis with stable indistinct right basilar opacity related to atelectasis or pneumonia EKG: Sinus rhythm Temp Pulse Resp BP Pulse Ox 36.8 C 75 20 147/87 H 98 11/12/18 13:01 11/12/18 13:01 11/12/18 13:01 11/12/18 13:01 11/12/18 13:01 O2 (L/minute) 4 Constitutional: no apparent distress, appears nourished, obese Eyes: PERRL, anicteric sclera, EOMI Ears, Nose, Mouth, Throat: hearing normal, ears appear normal, no oral mucosal ulcers, dry mucous membranes Cardiovascular: regular rate and rhythym, no murmur, rub, or gallop, No edema Peripheral Pulses: 2+: dorsalis-pedis (R), dorsalis-pedis (L) Respiratory: reduced air movement Gastrointestinal: normoactive bowel sounds, soft, non-tender abdomen, no palpable masses Genitourinary: no bladder fullness, no bladder tenderness Skin: warm, normal color, no rashes or abrasions, no fluctuance, no induration, No mottled Musculoskeletal: full muscle strength, no muscle tenderness, normal joint ROM, no joint effusions Neurologic: AAOx3, sensation intact bilaterally, CN II-XII Intact Psychiatric: interacting appropriately, not anxious, not encephalopathic, thought process linear Lymph, Heme, Immunologic: no cervical LAD, no supraclavicular LAD Lab Data & Imaging Review 11/12/18 12:05 11/12/18 11:48 WBC 11.48 10^3/uL (3.80-9.50) H 11/12/18 12:05 RBC 5.79 10^6/uL (4.18-5.33) H 11/12/18 12:05 Hgb 17.9 g/dL (12.6-16.3) H 11/12/18 12:05 Hct 53.7 % (38.0-47.0) H 11/12/18 12:05 MCV 92.7 fL (81.5-99.8) 11/12/18 12:05 MCH 30.9 pg (27.9-34.1) 11/12/18 12:05 MCHC 33.3 g/dL (32.4-36.7) 11/12/18 12:05 RDW 16.6 % (11.5-15.2) H 11/12/18 12:05 Plt Count 191 10^3/uL (150-400) 11/12/18 12:05 MPV 12.2 fL (8.7-11.7) H 11/12/18 12:05 Neut % (Auto) 65.4 % (39.3-74.2) 11/12/18 12:05 Lymph % (Auto) 27.7 % (15.0-45.0) 11/12/18 12:05 [place] % (Auto) 4.9 % (4.5-13.0) 11/12/18 12:05 Eos % (Auto) 1.0 % (0.6-7.6) 11/12/18 12:05 Baso % (Auto) 0.6 % (0.3-1.7) 11/12/18 12:05 Nucleat RBC Rel Count 0.2 % (0.0-0.2) 11/12/18 12:05 Absolute Neuts (auto) 7.50 10^3/uL (1.70-6.50) H 11/12/18 12:05 Absolute Lymphs (auto) 3.18 10^3/uL (1.00-3.00) H 11/12/18 12:05 Absolute Monos (auto) 0.56 10^3/uL (0.30-0.80) 11/12/18 12:05 Absolute Eos (auto) 0.12 10^3/uL (0.03-0.40) 11/12/18 12:05 Absolute Basos (auto) 0.07 10^3/uL (0.02-0.10) 11/12/18 12:05 Absolute Nucleated RBC 0.02 10^3/uL (0-0.01) H 11/12/18 12:05 Immature Gran % 0.4 % (0.0-1.1) 11/12/18 12:05 Immature Gran # 0.05 10^3/uL (0.00-0.10) 11/12/18 12:05 PT 13.4 SEC (12.0-15.0) 11/12/18 12:05 INR 1.06 (0.83-1.16) 11/12/18 12:05 APTT 25.5 SEC (23.0-38.0) 11/12/18 12:05 VBG Lactic Acid 3.1 mmol/L (0.7-2.1) H 11/12/18 12:39 Sodium 136 mEq/L (135-145) 11/12/18 11:48 Potassium 3.9 mEq/L (3.5-5.2) 11/12/18 11:48 Chloride 93 mEq/L (97-110) L 11/12/18 11:48 Carbon Dioxide 30 mEq/l (22-31) 11/12/18 11:48 Anion Gap 13 mEq/L (6-14) 11/12/18 11:48 BUN 19 mg/dL (7-23) 11/12/18 11:48 Creatinine 0.8 mg/dL (0.6-1.0) 11/12/18 11:48 Estimated GFR > 60 11/12/18 11:48 Glucose 306 mg/dL (70-100) H 11/12/18 11:48 Calcium 9.6 mg/dL (8.5-10.4) 11/12/18 11:48 Total Bilirubin 0.6 mg/dL (0.1-1.4) 11/12/18 11:48 POC Troponin I 0.00 ng/mL (0.00-0.08) 11/12/18 12:19 Assessment & Plan Plan: 52 y/o homeless female previously admitted for PNA, COPD exacerbation, and hypoxia left AMA d/t social issues presents w/worsening hypoxia and continued productive cough. Her vital signs upon admission today are the following: Blood pressure 176/87, heart rate 85, respiration 30, temperature 37.2 degrees, oxygen saturation on room air 66% transitioning to 4 L nasal cannula at 92%. Current vital signs are the following: Blood pressure 124/80, heart rate 73, respirations 16, oxygen saturation 99% on 4 L nasal cannula #Acute hypoxic respiratory failure in the setting of suspected RLL PNA -Severe sepsis protocol activated d/t lactic acid (3.6), respirations (30) and hypoxia on RA (66%). She received 2.3L bolus NS in ED, Solu-Medrol IVP; cont aggressive IVF x 2 bags, will check lactic acid this afternoon. -Received Zosyn in ED; will cont abx Q6H considering her recent admission into the hospital and social situation; she is at higher risk for exposure to infectious agents. Procalcitonin was low at prior admission, will recheck now. -Resp panel pending -Blood cx pending #COPD exacerbation -See above -Received Solu-Medrol in the ED; will cont x 1 Solu-Medrol Q6H then initiate Prednisone PO in AM -Duoneb tx -Wears O2 at nighttime, unsure whether this is because of her COPD or because she has undiagnosed sleep apnea -Attempt to titrate down #DM w/hyperglycemia -Holding home metformin, ISS in house, glucose checks TID before meals -Checking A1c -Glucose may be high d/t steroids #HTN -May be elevated d/t steroids and neb tx -Cont home medications amlodipine, lisinopril Diet: Carb controlled VTE PPX: Lovenox subq Code: DNR; it was difficult for her to decide but after a long discussion she wishes to remain DNR. Informed her code status can always been changed so if she talks to her son and decides she wants full code, we can change her status. She verbalized understanding. Dispo: Admit to obs
[2018-11-12] MEDS: NS 1,000 ML IV SCH ×2 (13:51→22:19)
--- NOTE | 2018-11-12 14:41 | ASMTCMCOM ---
CM Note CM Note Notes: Case management received call from LITO Kelly career counselor at [phone] after patient was seen this morning for a follow up appointment after patient left AMA from [facility] on 11/08/18. Per Kimmy Kelly NP asked patient to go to the ER today due to SOB and hypoxia on room air. Chart reviewed. Patient arrived to the ER approximately 1 1/2 hours after CM received this call. This CM met briefly with patient prior to her re-admission to give her resource information which Leticia brought over for her. I inquired into whether patient had followed up with [facility] and/or other resources and patient tells me that she has not. Patient continues to be staying in a car with her adult son who is not present at this time. CM to follow Date Signed: 11/12/2018 02:39 PM Electronically Signed By:Sheridan Toro RN
--- NOTE | 2018-11-12 16:05 | HOSPPROG ---
Hospitalist Progress Note Assessment/Plan: I have personally seen and evaluated Yessica Burger. I agree with the assessment and plan as outlined by RN HEART, Sandy Renteria, in a separate note. Objective: Vital Signs Temp Pulse Resp BP Pulse Ox 36.7 C 70 18 147/87 H 96 11/12/18 13:33 11/12/18 13:33 11/12/18 13:33 11/12/18 13:33 11/12/18 13:33 Microbiology 11/12/18 12:48 Respiratory Panel (PCR) - Final Nasal, Sinus - Swab No Organism Detected By Pcr PT 13.4 SEC (12.0-15.0) 11/12/18 12:05 INR 1.06 (0.83-1.16) 11/12/18 12:05 ICD10 Worksheet Patient Problems: Problems Problem Status Onset Chronic obstructive pulmonary disease with acute exacerbation Acute Pneumonia Acute Exacerbation of asthma Acute
[2018-11-12] MEDS: IPRATROPIUM/ALBUTEROL 3 ML DEYVIAL IH SCH ×2 (16:07→21:36)
[2018-11-12] MEDS: INSULIN LISPRO 100 UNIT/ML SC SCH (17:59)
[2018-11-12] MEDS: PIPERACILLIN/TAZO 4.5 GM/DEX 100 ML IV SCH ×2 (17:59→23:33)
[2018-11-12] MEDS ORDERED: methylPREDNISolone SOD SUCC 125 MG/2 ML VIAL IVP SCH (18:30)
[2018-11-12] MEDS ORDERED: INSULIN LISPRO 100 UNIT/ML SC ONE (22:01)
[2018-11-13] MEDS: IPRATROPIUM/ALBUTEROL 3 ML DEYVIAL IH SCH ×4 (04:54→21:41)
[2018-11-13] MEDS: PIPERACILLIN/TAZO 4.5 GM/DEX 100 ML IV SCH (05:06)
[2018-11-13 05:13] LABS: PLATELET COUNT 171 10^3/uL (150-400)
[2018-11-13] MEDS: INSULIN LISPRO 100 UNIT/ML SC SCH ×3 (08:14→18:23)
[2018-11-13] MEDS: ENOXAPARIN 40 MG/0.4 ML SYR SC SCH (08:16)
[2018-11-13] MEDS: LISINOPRIL 10 MG TAB PO SCH (08:17)
[2018-11-13] MEDS: predniSONE 20 MG TAB PO SCH (08:18)
--- NOTE | 2018-11-13 13:30 | HOSPPROG ---
Hospitalist Progress Note Assessment/Plan: 52 y/o homeless female previously admitted for PNA, COPD exacerbation, and hypoxia left AMA d/t social issues presents w/worsening hypoxia and continued productive cough. Her vital signs upon admission today are the following: Blood pressure 176/87, heart rate 85, respiration 30, temperature 37.2 degrees, oxygen saturation on room air 66% transitioning to 4 L nasal cannula at 92%. Current vital signs are the following: Blood pressure 124/80, heart rate 73, respirations 16, oxygen saturation 99% on 4 L nasal cannula #Acute hypoxic respiratory failure in the setting of suspected RLL PNA -Severe sepsis protocol activated d/t lactic acid (3.6), respirations (30) and hypoxia on RA (66%). She received 2.3L bolus NS in ED, Solu-Medrol IVP; cont aggressive IVF x 2 bags, repeat LA 1.8 -Received Zosyn in ED; switched to PO Levaquin this AM due to improvement overnight (Day 08/12 abx -Resp panel negative -Blood cx pending #COPD exacerbation -See above -Received Solu-Medrol in the ED; will cont Prednisone 40 mg qd PO (day 08/12) -Duoneb tx -Wears O2 at nighttime, unsure whether this is because of her COPD or because she has undiagnosed sleep apnea -Attempt to titrate down, currently on 1L NC #DM w/hyperglycemia -Holding home metformin, ISS in house, glucose checks TID before meals -A1c 9.2 -Glucose may be high d/t steroids #HTN -May be elevated d/t steroids and neb tx -Cont home medications amlodipine, lisinopril Diet: Carb controlled VTE PPX: Lovenox subq Code: DNR; it was difficult for her to decide but after a long discussion she wishes to remain DNR. Informed her code status can always been changed so if she talks to her son and decides she wants full code, we can change her status. She verbalized understanding. Dispo: Pending clinical course Subjective: Pt reports some improvement in SOB this AM Objective: Vital Signs Temp Pulse Resp BP Pulse Ox 36.3 C 69 16 149/86 H 99 11/13/18 11:03 11/13/18 11:50 11/13/18 11:50 11/13/18 11:03 11/13/18 11:50 Microbiology 11/12/18 12:48 Respiratory Panel (PCR) - Final Nasal, Sinus - Swab No Organism Detected By Pcr Laboratory Results 11/13/18 04:45 11/12/18 11/13/18 11/14/18 05:59 05:59 05:59 Intake Total 250 Balance 250 PT 13.4 SEC (12.0-15.0) 11/12/18 12:05 INR 1.06 (0.83-1.16) 11/12/18 12:05 - Physical Exam Constitutional: chronically ill appearing Eyes: PERRL Ears, Nose, Mouth, Throat: moist mucous membranes Cardiovascular: regular rate and rhythym Respiratory: no respiratory distress, reduced air movement, No expiratory wheeze Gastrointestinal: soft, non-tender abdomen Skin: warm Musculoskeletal: full muscle strength Neurologic: AAOx3 Psychiatric: interacting appropriately ICD10 Worksheet Patient Problems: Problems Problem Status Onset Chronic obstructive pulmonary disease with acute exacerbation Acute Pneumonia Acute Exacerbation of asthma Acute
--- NOTE | 2018-11-13 22:07 | PDMN ---
Medical Necessity Medical necessity: Change to inpt as of 11/13/18, meets int criteria per MD order and MCG M282, Pneumonia, inpt admission for hypoxemia as indicated by: patient with baseline need for supplemental oxygen who now requires increased supplemental oxygen to maintain oxygenation at baseline or acceptable level. 52 y/o homeless pt recently admitted for PNA, COPD exac, and hypoxia now presenting w/worsening hypoxia and cont prod cough, normally wears O2 at night but still needs 1.5-2L continuously for ongoing SOB, bl sugars elevated, lactate initially elevated, est LOS>2MN for ongoing management of above.
[2018-11-14] MEDS: IPRATROPIUM/ALBUTEROL 3 ML DEYVIAL IH SCH ×3 (05:31→16:17)
[2018-11-14] MEDS: INSULIN LISPRO 100 UNIT/ML SC SCH ×3 (09:00→17:28)
[2018-11-14] MEDS: LISINOPRIL 10 MG TAB PO SCH (09:02)
[2018-11-14] MEDS: predniSONE 20 MG TAB PO SCH (09:03)
[2018-11-14] MEDS: ENOXAPARIN 40 MG/0.4 ML SYR SC SCH (09:03)
--- NOTE | 2018-11-14 12:34 | PDHOMEO2F ---
Home Oxygen Face to Face Home Orders: I certify that a physician or a nurse practitioner or physician's after school program assistant has had a [id number] encounter with this patient on the date of this order due to the diagnosis listed, which relates to the primary reason the patient requires home oxygen. Alternative treatments have been tried, or considered, and deemed ineffective. It is anticipated that supplemental oxygen will result in improvement with treatment. Home oxygen qualifying diagnosis: COPD SpO2 on room air (%): 84 Frequency of home oxygen needed: continuous Home oxygen liters per minute: 2 Home oxygen delivery device: nasal cannula Concentrator: Yes E-tanks for mobility and back up: Yes If ordering portable O2, is the patient mobile in the home?: Yes I certify that, based on these findings, the home oxygen is medically necessary for this patient for the following length of time. Length of time home oxygen needed: 99 years
--- NOTE | 2018-11-14 12:42 | ASMTLACE ---
LAURENE Length of stay for Answers: 2 days current admission Acuity / Level of Answers: Yes Care: Did the patient have an inpatient admission? Comorbidities - select Answers: Chronic pulmonary disease all that apply Diabetes (uncontrolled or controlled) # of Emergency department Answers: 1-2 visits in the last 6 months Social determinants Answers: Homelessness (street, penitentiary) Mental health diagnosis (anxiety, depression, pers onality disorders, etc.) Score: 15 Date Signed: 11/14/2018 12:41 PM Electronically Signed By:GREGORIO Cartwright
--- NOTE | 2018-11-14 12:42 | ASMTCMCOM ---
CM Note CM Note Notes: Pts case discussed w/ Dr. Mccarthy. Pt is being d/c'd today. CM met w/ pt for dispo planning. CM provided pt w/ info to [facility]. Pt reports that she plans on staying in her car w/ her son. CM made pt a follow up appointment w/ her PCP and gave her it to her. Pt plans on applying for housing. CM informed pt that she can use case management services at [facility] even if she is not staying there. OT cleared pt to d/c home without any needs. No other needs at this time. CM available for changes. Plan: Independent Please follow up with: [address], [place] [address] Kimmy Cobb NP 11/19/18 at 9:30AM Arrive 15 mins prior to appointment to check in. Bring photo ID, insurance card, co pay, list of all meds and d/c paperwork from the hospital. Date Signed: 11/14/2018 12:40 PM Electronically Signed By:GREGORIO Cartwright
--- NOTE | 2018-11-14 14:14 | PDDCSUM ---
Discharge Summary Discharge Summary: Date of Admission: 11/12/2018 Date of Discharge: 11/14/2018 Consults: N/A Procedures: Followup: PCP Hospital Course Problem List: 52 y/o homeless female previously admitted for PNA, COPD exacerbation, and hypoxia left AMA d/t social issues presents w/worsening hypoxia and continued productive cough. #Acute hypoxic respiratory failure in the setting of suspected RLL PNA -Severe sepsis protocol activated d/t lactic acid (3.6), respirations (30) and hypoxia on RA (66%). She received 2.3L bolus NS in ED, Solu-Medrol IVP; repeat LA 1.8 -Received Zosyn in ED; switched to PO Levaquin on 11/13 due to improvement overnight (Day 3 of total 5 day course of abx) -Resp panel negative -Blood cx NGTD #COPD exacerbation -See above -Received Solu-Medrol in the ED; will cont Prednisone 40 mg qd PO (day 3/5) -Duoneb tx - Patient desaturating to 85% on RA at rest, ordered home 02 for discharge, patient reports compliance will be difficult due to current homelessness #DM w/hyperglycemia -Holding home metformin, ISS in house, glucose checks TID before meals -A1c 9.2 #HTN -Cont home medications amlodipine, lisinopril Time spent on discharge was >35 minutes with >50% of time spent on patient education and counseling.
[2018-11-14 15:46] VITALS: BP 146/90
--- NOTE | 2018-11-14 16:05 | ASMTCMCOM ---
CM Note JESSICA Note Notes: Pt desated on oxygen and will require it at dc. JESSICA spoke to Thomas, director of intermediate. He reports that pt can have o2 delivered to intermediate. CM reserved a intermediate bed for pt. RT will set up o2 for pt. Pt understands that she will need to call [facility] once she gets to the intermediate for them to deliver it. CM instructed pt to go through [facility] tomorrow to set up w/ either [facility] to home or intermediate placement. CM available for changes. Date Signed: 11/14/2018 04:04 PM Electronically Signed By:GREGORIO Cartwright
== END 2018-11-14 17:53 | disposition home or self-care (01) | DRG 193 ==
LOC: INTOOBSV 12:22 → F3E 13:16 → OBSVTOIN 11-13 13:40
PROVIDERS: ADMIT Internal Medicine; ATTEND Internal Medicine
DX: J18.1 Lobar pneumonia, unspecified organism (principal); J96.01 Acute respiratory failure with hypoxia; J44.0 Chronic obstructive pulmonary disease with (acute) lower respiratory infection; J44.1 Chronic obstructive pulmonary disease with (acute) exacerbation; R65.20 Severe sepsis without septic shock; E11.65 Type 2 diabetes mellitus with hyperglycemia; I10 Essential (primary) hypertension; E78.5 Hyperlipidemia, unspecified; F32.9 Major depressive disorder, single episode, unspecified; Z59.0 Homelessness; Z66 Do not resuscitate; Z72.0 Tobacco use
CPT/HCPCS: 84484-ER; 96365; 97165-GO; G0378; J1650; J1815; J2543; J2930; J7512

== ENCOUNTER 2018-11-20 03:35 | Observation (INO) | payer OTHER ==
[2018-11-20] MEDS ORDERED: methylPREDNISolone SOD SUCC 125 MG/2 ML VIAL IVP ONE (03:48)
[2018-11-20] MEDS ORDERED: IPRATROPIUM/ALBUTEROL 3 ML DEYVIAL IH ONE (03:48)
[2018-11-20] MEDS ORDERED: IPRATROPIUM/ALBUTEROL 3 ML DEYVIAL ONE (03:48)
--- NOTE | 2018-11-20 03:51 | EDPHY ---
H & P Stated Complaint: SOB, JUST DISCHARGED FROM HOSPITAL. NEW TO THE AREA Time Seen by Provider: 11/20/18 03:41 HPI/ROS: Chief Complaint: Shortness of breath HPI: 52-year-old woman presenting with complaints of shortness of breath. She was just discharged from the hospital 5 days ago after admission for pneumonia and respiratory failure. She has history of COPD and smoking. She is currently homeless. She was discharged with home oxygen with a concentrated but she has not benefitted use this because she does not have access to power during the day and did not have any oxygen at the [facility]. She has been using her albuterol inhaler without relief. She has a dry nonproductive cough. No fevers or chills. No nausea or vomiting. No chest pain. ROS: 10 systems were reviewed and were negative except those elements noted in the HPI. PMH: COPD, diabetes, hypertension Social History: Positive smoking, currently homeless staying at the [facility] Family History: non-contributory Physical Exam: Gen: Awake, Alert, mild respiratory distress, oxygen saturations 58% on room air , cyanotic extremities HEENT: Nose: no rhinorrhea Eyes: PERRLA, EOMI Mouth: Moist mucosa Neck: Supple, no JVD Chest: nontender, dramatically diminished lung sounds, no audible wheeze Heart: S1, S2 normal, no murmur Abd: Soft, non-tender, no guarding Back: no CVA tenderness, no midline tenderness Ext: no edema, non-tender Skin: no rash Neuro: CN II-XII intact, Sensation grossly intact, Strength 5/5 in bilateral upper and lower extremities - Personal History LMP (Females 10-55): Post Menopausal - Medical/Surgical History Hx Asthma: Yes Hx Chronic Respiratory Disease: Yes Hx Diabetes: Yes Hx Cardiac Disease: No Hx Renal Disease: No Hx Cirrhosis: No Hx Alcoholism: No Hx HIV/AIDS: No Hx Splenectomy or Spleen Trauma: No Other PMH: DM, depression, carpal tunnel, HTN, hyperlipidemia, asthma, COPD - Social History Smoking Status: Current every day smoker Constitutional: Initial Vital Signs Temperature (C) 36.7 C 11/20/18 03:35 Heart Rate 64 11/20/18 03:35 Respiratory Rate 24 H 11/20/18 03:35 Blood Pressure 159/99 H 11/20/18 03:35 O2 Sat (%) 59 L 11/20/18 03:35 O2 Delivery Mode Room Air O2 (L/minute) 2 Allergies/Adverse Reactions: No Known Allergies Allergy (Verified 11/20/18 03:46) Home Medications: Medication Instructions Recorded Albuterol [Proventil Inhaler HFA 1 - 2 puffs IH Q4H PRN 11/06/18 (*)] Cetirizine [ZyrTEC 10 mg (*)] 10 mg PO DAILY tab 11/08/18 Lisinopril [Zestril 10 mg (*)] 10 mg PO DAILY #10 11/08/18 amLODIPine BESYLATE [Norvasc 10 mg 10 mg PO DAILY #10 tab 11/08/18 (*)] Ipratropium/Albuterol [Duoneb (*)] 3 ml IH QID PRN 11/12/18 metFORMIN HCL [Glucophage 1000 mg] 1,000 mg PO BIDMEAL 11/12/18 Medical Decision Making ED Course/Re-evaluation: 52-year-old woman with history of COPD, chronic oxygen dependency and recent pneumonia is presenting complaining of shortness of breath, hypoxemic to 58 on room air and cyanotic. Despite this she has not appear to be in severe respiratory distress. Oxygen saturations came up to the high 80s on 4 L nasal cannula. I have ordered chest x-ray, blood work. Solu-Medrol and a DuoNeb. Patient discussed with Dr. Lazaro, hospitalist. She will admit to her service for further care. - Data Points Medications Given: Discontinued Medications Albuterol/Ipratropium (Duoneb) 3 ml IH EDNOW ONE Stop: 11/20/18 03:49 Last Admin: 11/20/18 03:51 Dose: 3 ml Departure - Departure Disposition: [facility] Inpatient Acute Clinical Impression: Chronic obstructive pulmonary disease with acute exacerbation Condition: Serious Referrals: NONE *PRIMARY CARE P,. [Primary Care Provider] - As per Instructions
[2018-11-20] MEDS ORDERED: ONDANSETRON DISINTEGRATING 4 MG TAB PO PRN (03:57)
[2018-11-20] MEDS ORDERED: ONDANSETRON 4 MG/2 ML VIAL IVP PRN (03:57)
[2018-11-20] MEDS ORDERED: ACETAMINOPHEN 325 MG TAB PO PRN (03:57)
[2018-11-20] MEDS ORDERED: IBUPROFEN 200 MG TAB PO PRN (03:57)
[2018-11-20] MEDS ORDERED: ALBUTEROL 3 ML DEYVIAL IH PRN (03:59)
[2018-11-20] MEDS ORDERED: NS 1,000 ML IV SCH ×2 (04:00→22:00)
[2018-11-20 04:19] LABS: PLATELET COUNT 225 10^3/uL (150-400)
[2018-11-20] MEDS ORDERED: NS 1,000 ML IV ONE (04:22)
--- NOTE | 2018-11-20 07:00 | GHP ---
[f rep st] HISTORY AND PHYSICAL DATE OF ADMISSION: 11/20/2018 The patient without a PCP, but was referred at her previous discharge on 11/14/2018. SOURCE: Patient provides history, appears reliable. EMR was reviewed and case discussed with ED pro vider. CHIEF COMPLAINT: Shortness of breath. 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 The patient had moved recently from [place]. She had her first of 3 admissions including to day, on 11/06/2018. The patient appeared to have a right lower lobe pneumonia with asthma exacerbati on. She had continued oxygen requirements, was placed on antibiotics, and subsequently left AMA for personal reasons as she is trying hard to look for housing locally. She subsequently returned on 03/2019, and had continued her antibiotic therapy and received oxygen supplementation. She has recei frank her oxygen concentrator. She is currently staying in a fdc in [place] and they do not c lose until 9:00 p.m. Her son and herself are still trying to look for housing locally. The patient reports that she has continued to have shortness of breath. She denies any fevers or chills. She dubon s occasional production of cough minimally with clear to yellow sputum. The patient also notes that she has never had her oxygen so low to the point where she has felt disoriented. In the emergency department, patient arrived to the emergency department cyanotic and in acute respir atory distress. She required 4.5 L of oxygen to maintain her O2 sats greater than 95%. She received IV Solu-Medrol and nebulizer treatment with improvement in her oxygenation along with supplemental o xygen. She continues to have severely diminished breath sounds and is unable to be discharged from [facility] emergency department. REVIEW OF SYSTEMS: Ten systems reviewed, negative except as noted above. ALLERGIES: No known drug allergies. HOME MEDICATIONS: As available per EMR, not yet reconciled. Metformin 1000 p.o. twice daily, amlodi pine 100 mg p.o. daily, lisinopril 10 mg p.o. daily, DuoNebs four times daily p.r.n., Zyrtec 10 mg p. o. daily, albuterol 1-2 puffs inhaled q.4 hours p.r.n. PAST MEDICAL HISTORY: Significant for asthma without history of intubation, tobacco dependence, diab etes type 2, depression, carpal tunnel syndrome, HTN, HLD. PAST SURGICAL HISTORY: Significant for carpal tunnel release. FAMILY HISTORY: Mother's side of the family with history of breast cancer, CKD. Mother wit h history of asthma. Father with history of diabetes. SOCIAL HISTORY: Patient is from [place]. Since beginning of November, she is currently living in her car with her son. More recently, she has gone to a fdc she reports up in [place] and has receiv ed her oxygen concentrator. She does smoke. Her last cigarette, however, was yesterday. She denied any illicit drugs. No alcohol. CODE STATUS: DNR, DNI. PHYSICAL EXAMINATION: VITAL SIGNS: Upon arrival, blood pressure is 159/99, heart rate 64, respirato ry rate 24, O2 saturation is 59% on room air with temperature 36.7. Current vitals available: Blood pressure 121/82, heart rate 51, respiratory rate 20, O2 saturation 97% on 4.5 L by nasal cannula. G ENERAL: Patient in no acute distress. Pleasant, obese female is resting quietly upright in her gurn ey. HEAD: Normocephalic, atraumatic. EYES: Extraocular muscles are grossly intact. Pupils equal, round, react to light bilaterally and symmetric. No scleral icterus, conjunctival injection. NECK: Supple. Trachea midline. CV: Bradycardic with regular rhythm. No murmurs, rubs, or gallops appr eciated. Exam slightly limited due to body habitus. LUNGS: Patient with severely restricted air mo vement in all lung johnson. No wheezing is appreciated. No crackles or rhonchi. ABDOMEN: Obese, so ft, nontender to palpation. No rebound, guarding, or masses appreciated. : No suprapubic tendern ess to palpation. No Moraes catheter in place. MUSCULOSKELETAL: Patient able to sit up independentl y. Moves all extremities. Generalized deconditioning noted. NEURO: Grossly nonfocal. Moves all e xtremities. No facial drooping. PSYCH: Affect slightly flat. Patient appears quite fatigued, but she wakes easily. She is pleasant and cooperative. Thought process, content, questions appropriate. LABORATORY STUDIES: WBC 14.29, H and H 18.5, HCT 55.4, MCV 92.3, platelet count is 225, no bands. S odium 136, potassium 4.2, chloride 95, CO2 33, anion gap 8, BUN is 20, creatinine 0.7. GFR greater t dickey 60. Glucose 189, calcium 9.6. Chest x-ray: Image reviewed myself, report is still pending. Negative for any acute findings. Impr ovement in the right lower lung infiltrate. ASSESSMENT AND PLAN: Pleasant 52-year-old female with history of asthma, tobacco dependence, diabete s, depression, carpal tunnel, hypertension, hyperlipidemia, who presents to the emergency department today with complaints of severe shortness of breath, found to be cyanotic. 1. Acute hypoxic respiratory failure. The patient had been on room air previously. She was still s aturating poorly with 2 L supplemental oxygen. She was subsequently increased to 4.5 L with improvem ent in saturations along with the use of steroids and nebulizer treatment. We will plan to continue steroids, steroid burst, and p.r.n. nebulizers. Will add Pulmicort twice daily. 2. Asthma exacerbation. No evidence of an acute infiltrate on chest x-ray. Continue treatment as n oted above. Chronic medical issues: 1. Diabetes type 2. Resume patient's metformin. 2. Benign essential hypertension. Blood pressures have improved slightly. Resume lisinopril, amlod ipine. 3. History of hyperlipidemia. No current medications listed. Dietary and lifestyle modifications r ecommended. 4. Tobacco dependence. Immediate cessation encouraged. Patient declines nicotine patch. 5. Fluids, electrolytes, nutrition. IV fluids for 1 L as patient does still appear dry. Diet as to lerated. Monitor electrolytes, replace if needed. 6. Prophylaxis. SCDs. Anticoagulation if patient should stay additional day. 7. Code status. The patient desires to be a DNR/DNI. The patient is amenable to have the human resources specialist service visit with her and go over an advance directive form. She was previously quite hesitant to madonna izaiah a decision due to concerns regarding her son, but she reports that she had a conversation with fredi peacock previously. He is aware of her wishes. She has not completed a formal advance directive and will try to assist her with this during this stay. DISPOSITION: Patient admitted to observation status on medical/surgical floor pending repeat assessm ent by the hospitalist later this morning. /[id number]/MODL
[2018-11-20] MEDS: IPRATROPIUM/ALBUTEROL 3 ML DEYVIAL IH SCH ×4 (08:25→21:02)
--- NOTE | 2018-11-20 10:08 | HOSPPROG ---
Hospitalist Progress Note Assessment/Plan: 52-year-old female with history of asthma, tobacco dependence, diabetes, depression, carpal tunnel, hypertension, hyperlipidemia, who presents to the emergency department today with complaints of severe shortness of breath, found to be cyanotic. This is her 3rd admission this month. First encounter, chart reviewed. *acute hypoxemic respiratory failure -Pulmicort BID, IV steroids -will ask Pulmonology to see -says she [facility] oxygen at the [facility] * acute asthma exacerbation -reviewed her chest x-ray myself which does not show any type of infiltrate * diabetes type 2 -metformin (hold for now) -place on a sliding scale while on steroids * hypertension -resumed Norvasc and lisinopril * nicotine dependence -doesn't want a patch; realizes this is affecting her health *plan: CM to look at options for Yessica; she needs oxygen and this can be difficult at the [facility]. > 30 minutes seeing the patient and follow up care. Subjective: Yessica cont to be very short of breath. Objective: Vital Signs Temp Pulse Resp BP Pulse Ox 36.6 C 52 L 14 127/81 H 94 11/20/18 06:39 11/20/18 06:39 11/20/18 06:39 11/20/18 06:39 11/20/18 06:39 Laboratory Results 11/20/18 04:00 11/20/18 04:45 - Physical Exam Constitutional: not in pain, chronically ill appearing, obese Eyes: PERRL Ears, Nose, Mouth, Throat: hearing normal Cardiovascular: regular rate and rhythym Respiratory: reduced air movement (throughout base upto mid lobes, poor expiratory effort) Gastrointestinal: normoactive bowel sounds Skin: warm Musculoskeletal: generalized weakness Neurologic: AAOx3 Psychiatric: interacting appropriately ICD10 Worksheet Patient Problems: Problems Problem Status Onset Chronic obstructive pulmonary disease with acute exacerbation Acute Exacerbation of asthma Acute Pneumonia Acute
[2018-11-20] MEDS ORDERED: D50W 25 GM/50 ML SYR IVP PRN ×2 (10:19)
[2018-11-20] MEDS: LISINOPRIL 10 MG TAB PO SCH (10:33)
[2018-11-20] MEDS: CETIRIZINE 10 MG TAB PO SCH (10:34)
[2018-11-20] MEDS: ENOXAPARIN 40 MG/0.4 ML SYR SC SCH (10:34)
[2018-11-20] MEDS: methylPREDNISolone SOD SUCC 40 MG/ML VIAL IVP SCH (10:34)
[2018-11-20] MEDS: BUDESONIDE 0.5 MG/2 ML AMPUL.NEB IH SCH ×2 (10:42→21:02)
[2018-11-20] MEDS: INSULIN LISPRO 100 UNIT/ML SC SCH ×2 (12:02→18:16)
[2018-11-20] MEDS ORDERED: MAGNESIUM SULF 1 GM/DEXTROSE 100 ML IV ONE (13:39)
--- NOTE | 2018-11-20 17:04 | ASMTCMCOM ---
CM Note CM Note Notes: CM spoke at length with pt and her son in the room. Pt admitted for the third time in three weeks for hypoxia. On last discharge CM connected pt with [facility] and she has been spending her nights at the [facility]. Pt came from [place], [place] with her son and they have been living in her car. Her son is employed. She brought her own O2 concentrator from [place] which she only needed at night previously. However pt needs O2 now during the day and is unable to plug the concentrator in at the long-term during the day and it drains the car battery too much. On last discharge, CM connected pt with [facility] for home O2 to be delivered at the long-term as she needs it during the day. Pt reported that with her [place]-based Medicare, [employer] wanted to charge her $120 for tanks to use during the day and she doesn't have that [place] until her disability check comes in on December 06. CM offered to apply for [facility] medicaid for pt and connect her with a [facility]ent[facility] care facility for permanent housing, but pt is not willing to live away from her son nor ready to give up her privacy. [employer] confirmed they applied for [place] Medicaid for pt on last admission. Perhaps on this admission, home O2 can be reordered and covered by Medicaid. Pt will need follow up appointment with PCP [facility] Kimmy Cobb NP. CM to follow. D/C Plan: [facility] with access to day O2 and follow up with [facility] P[facility]. Date Signed: 11/20/2018 05:03 PM Electronically Signed By:Rosa Abebe
--- NOTE | 2018-11-20 18:52 | GCON ---
[f rep st] CONSULTATION PULMONARY CONSULTATION DATE OF CONSULTATION: 11/20/2018 REASON FOR CONSULTATION: COPD exacerbation, hypoxemia. HISTORY: The patient is a 52-year-old long-time smoker. She moved from [place] several weeks ago and has been hospitalized twice at [facility] prior to this admission, last on 11/13. She was fe lt to have a right lower lobe pneumonia on x-ray and treated accordingly. She was also treated for C OPD and reactive airways disease. She comes in now with shortness of breath and hypoxemia. She has had no significant cough or mucus, bringing up only a small amount of yellow sputum occasionally. Crow cowan has had no fevers, chills, or sweats. She has been using albuterol and occasionally uses DuoNeb. She does have oxygen by concentrator, however, secondary to her lifestyle, living out of her car, she uses this only at truck stops and when she has electricity at night. She has recently been staying in a fdc in [place]. She is traveling with her son. On admission to the emergency department, she was placed on 4 L of oxygen. She was given nebulized a lbuterol, Solu-Medrol, and admitted to a medical-surgical bed. She currently is on inhaled budesonid e, nebulized albuterol p.r.n., DuoNeb scheduled 4 times daily, and Solu-Medrol 60 mg intravenously da talat. She states she is feeling significantly better. She has no chest pain. She denies significant wheezing. Oxygen currently is still in place at 4 L, however, saturation on the monitor is 98%. PAST MEDICAL HISTORY: Remarkable for ongoing tobacco abuse, COPD, and "asthma." She has type 2 diab etes, systemic hypertension and allergies. MEDICATIONS: List includes metformin, amlodipine, lisinopril, DuoNeb, albuterol by metered-dose inha ler, and Zyrtec. SOCIAL HISTORY: The patient has been here for approximately 2 weeks, living in her car with her son. She has an oxygen concentrator. She continues to smoke. She started smoking at the age of 16 and continues now, approximately 35 years, up to 1 pack of cigarettes per day. 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 She is listed as do not resuscitate, do not intubate? FAMILY HISTORY: Reportedly positive for asthma. Possible COPD? Diabetes. REVIEW OF SYSTEMS: A 10-point review of systems is negative except as mentioned above. She denies r eflux or aspiration. She denies lower extremity edema, chest pain, heart disease, or other problems. PHYSICAL EXAMINATION: GENERAL: Reveals a woman who is sitting comfortably in a chair. She is in no distress. She has no cough, no audible wheezing. VITAL SIGNS: Blood pressure is 114/72. Heart ra te is 60 and regular. On 4 L, saturation is 98%. Respiratory rate is 16. HEENT: Unremarkable for lymphadenopathy or thyromegaly. There is no jugular venous distention. CHEST: Reveals markedly dec reased breath sounds bilaterally. Expiratory phase is prolonged. There are no rales. There are no rhonchi. At end exhalation, some wheezes are heard. She is not tight. HEART: Regular in rate and rhythm. There are no significant murmurs, no gallops. P2 appears normal but is distant. ABDOMEN: Soft, nontender. Bowel sounds are present. EXTREMITIES: Remarkable for trace edema. There are no obvious cords, no tenderness. NEUROLOGIC: Nonfocal. She is oriented, pleasant, and appropriate. X-RAY AND LABORATORY DATA: Chest x-ray is unremarkable for infiltrates. The previously seen possibl e right lower lobe infiltrate is no longer present. Some increased markings are noted at the bases. Cardiac silhouette is normal. White blood cell count is 14,300, hematocrit 55, platelets 225,000. Basic metabolic panel is within normal limits with the exception of a CO2 of 33 and chloride of 95. BUN is 20 with a creatinine of 0.7. Glucose has ranged between approximately 200 and 400. ASSESSMENT: 1. Chronic obstructive pulmonary disease. The patient has a long history of tobacco abuse and evy nues to smoke. Examination is consistent with kguspuyx-uz-pnjabz chronic obstructive pulmonary disea se. Spirometry has not yet been obtained. She does have a history of asthma/reversible airways obst ruction, which may be contributing to her chronic obstructive pulmonary disease. Her disease is asso ciated with hypoxemia. Secondary to her lifestyle, she appears to be poorly compliant with oxygen an d to nebulized treatments. Current medications are appropriate. There is no evidence of residual pn eumonia and no infectious symptoms. Antibiotics would not appear to be warranted. 2. Hyperglycemia. The patient does have a history of type 2 diabetes. Glucoses are significantly e levated in part secondary to steroid therapy. Insulin by sliding-scale coverage is being given. 3. History of other medical problems as outlined above. RECOMMENDATIONS: Current medications will be continued. Oxygen will be continued. Spirometry will be obtained tomorrow. Further plans and recommendations will be made based on her progress over the next 12 to 24 hours. /[id number]/MODL
[2018-11-20] MEDS ORDERED: INSULIN LISPRO 100 UNIT/ML SC ONE (21:48)
[2018-11-21] MEDS ORDERED: INSULIN GLARGINE 100 UNITS/ML UNIT SC SCH ×2 (00:30→18:11)
[2018-11-21] MEDS: IPRATROPIUM/ALBUTEROL 3 ML DEYVIAL IH SCH ×4 (06:03→21:46)
[2018-11-21] MEDS: LISINOPRIL 10 MG TAB PO SCH (08:15)
[2018-11-21] MEDS: CETIRIZINE 10 MG TAB PO SCH (08:15)
[2018-11-21] MEDS: methylPREDNISolone SOD SUCC 40 MG/ML VIAL IVP SCH (08:16)
[2018-11-21] MEDS: INSULIN LISPRO 100 UNIT/ML SC SCH (08:17)
[2018-11-21] MEDS: ENOXAPARIN 40 MG/0.4 ML SYR SC SCH (08:17)
[2018-11-21] MEDS: BUDESONIDE 0.5 MG/2 ML AMPUL.NEB IH SCH ×2 (10:30→21:46)
--- NOTE | 2018-11-21 11:44 | HOSPPROG ---
Hospitalist Progress Note Assessment/Plan: 52-year-old female with history of asthma, tobacco dependence, diabetes, depression, carpal tunnel, hypertension, hyperlipidemia, who presents to the emergency department today with complaints of severe shortness of breath, found to be cyanotic. This is her 3rd admission this month. *acute hypoxemic respiratory failure -Pulmicort BID, IV steroids (change to oral tomorrow) *moderate to severe COPD exacerbation -appreciate Dr Chester seeing her * acute asthma exacerbation- chest x-ray does not show any type of infiltrate * diabetes type 2 with high glucoses -increased sliding scale -resumed metformin -A1C is 9.3 - Lantus -ADA diet -asked nursing staff to teach her how to check glucoses and give herself insulin * hypertension -resumed Norvasc and lisinopril * nicotine dependence -doesn't want a patch; realizes this is affecting her health -she smokes when she is stressed *plan: spirometry to be done today, CM working on getting Medicaid for oxygen use Subjective: Yessica said she is feeling better today. Objective: Vital Signs Temp Pulse Resp BP Pulse Ox 36.8 C 66 16 150/93 H 92 11/21/18 11:33 11/21/18 11:33 11/21/18 11:33 11/21/18 11:33 11/21/18 11:33 Laboratory Results 11/20/18 04:00 11/20/18 21:50 11/20/18 11/21/18 11/22/18 05:59 05:59 05:59 Intake Total 400 Balance 400 - Physical Exam Constitutional: appears nourished, not in pain, chronically ill appearing, obese Eyes: PERRL Ears, Nose, Mouth, Throat: hearing normal Cardiovascular: regular rate and rhythym Respiratory: no respiratory distress, reduced air movement Skin: warm Musculoskeletal: full muscle strength Neurologic: AAOx3 Psychiatric: interacting appropriately ICD10 Worksheet Patient Problems: Problems Problem Status Onset Chronic obstructive pulmonary disease with acute exacerbation Acute Exacerbation of asthma Acute Pneumonia Acute
[2018-11-21] MEDS: metFORMIN HCL 500 MG TAB PO SCH ×2 (12:30→16:55)
[2018-11-21] MEDS: INSULIN LISPRO 100 UNIT/1 ML VIAL STANDARD SC SCH ×2 (12:31→18:07)
--- NOTE | 2018-11-21 13:57 | SOAPPROG ---
SOAP Progress Note Assessment/Plan: Assessment: COPD. Probably relatively severe. Spirometry pending. Likely does have a reversible or asthmatic component. Hypoxemia: Secondary to the above. Noncompliance with oxygen and nebulized treatments may be an issue going forward secondary to or lifestyle, living out of her car at times, etc. Diabetes mellitus: Blood sugars high, on coverage and metformin. Steroids certainly playing a role. Agree with decreased prednisone to 40. Hopefully inhaled steroids will be of benefit and we can avoid repeat need for prednisone. Hyponatremia: Mild. In part related to high blood sugars. May need fluid restriction if worsens. Plan: Continue present therapies. Await spirometry results. Can consider CT scan of the chest to screen for early lung cancer and emphysema. Discussed with hospitalist. Subjective: No complaints, doing well. On 1.5 L of oxygen. No cough, no mucus. No significant shortness of breath. Objective: Vital Signs Temp Pulse Resp BP Pulse Ox 36.8 C 66 16 150/93 H 92 11/21/18 11:33 11/21/18 11:33 11/21/18 11:33 11/21/18 11:33 11/21/18 11:33 Laboratory Results 11/20/18 04:00 11/20/18 21:50 11/20/18 11/21/18 11/22/18 05:59 05:59 05:59 Intake Total 400 Balance 400 Spirometry pending Physical Exam - Physical Exam General Appearance: alert, no apparent distress, other (Up in chair) EENT: PERRL/EOMI, other (Nasal cannula in place at 1.5 L. Saturations mid to high 90s) Neck: normal inspection (No JVD) Respiratory: lungs clear, decreased breath sounds, wheezing (Few end expiratory wheezes present with voluntary forced exhalation), prolonged expiration, No rhonchi (Mild central airway congestion with cough) Cardiac/Chest: regular rate, rhythm, No gallop Abdomen: normal bowel sounds, non-tender, soft Skin: normal color, warm/dry Extremities: No pedal edema Neuro/Psych: no motor/sensory deficits, No cognition abnormalities ICD10 Worksheet Patient Problems: Problems Problem Status Onset Chronic obstructive pulmonary disease with acute exacerbation Acute Exacerbation of asthma Acute Pneumonia Acute
[2018-11-21] MEDS ORDERED: PNEUMOCOCCAL 0.5ML VACCINE VIAL (PNEUMOVAX 23) IM ONE (16:22)
--- NOTE | 2018-11-21 17:14 | ASMTCMCOM ---
CM Note CM Note Notes: Addendum to note 11/20, please see that note for details: Pt's [place] Medicaid is not yet established and will not be until pt provides proper paperwork to [employer], which has been requested. RT contacted [facility] and determined that pt will need to pay [facility] $120 for new concentrator and tanks in order to have tanks delivered to [facility] for day use. CM will need to call [facility] on Saturday and find out if they can bill [facility] Case Management department for a one time order for tanks and concentrator for a total of $120. If this is not possible, pt will need to discharge and plug her O2 concentrator in at a coffee shop or the library during the day. Pt has also been advised that she needs to stop smoking immediately. D/C Plan: Homeless [facility] Date Signed: 11/21/2018 05:14 PM Electronically Signed By:Rosa Abebe
[2018-11-22] MEDS: IPRATROPIUM/ALBUTEROL 3 ML DEYVIAL IH SCH ×3 (05:22→16:08)
[2018-11-22] MEDS: metFORMIN HCL 500 MG TAB PO SCH (07:52)
[2018-11-22] MEDS: ENOXAPARIN 40 MG/0.4 ML SYR SC SCH (08:01)
[2018-11-22] MEDS: CETIRIZINE 10 MG TAB PO SCH (08:01)
[2018-11-22] MEDS: LISINOPRIL 10 MG TAB PO SCH (08:01)
[2018-11-22] MEDS ORDERED: predniSONE 20 MG TAB PO SCH (09:00)
[2018-11-22] MEDS: INSULIN LISPRO 100 UNIT/1 ML VIAL STANDARD SC SCH ×2 (09:21→13:22)
[2018-11-22] MEDS: BUDESONIDE 0.5 MG/2 ML AMPUL.NEB IH SCH (09:53)
[2018-11-22 11:09] VITALS: BP 143/85
--- NOTE | 2018-11-22 13:29 | HOSPPROG ---
Hospitalist Progress Note Assessment/Plan: 52-year-old female with history of asthma, tobacco dependence, diabetes, depression, carpal tunnel, hypertension, hyperlipidemia, who presents to the emergency department today with complaints of severe shortness of breath, found to be cyanotic. This is her 3rd admission this month. *acute hypoxemic respiratory failure -Pulmicort BID, oral steroids -much improved *moderate to severe COPD exacerbation -appreciate Dr Chester seeing her * acute asthma exacerbation- chest x-ray does not show any type of infiltrate * diabetes type 2 with high glucoses -increased sliding scale -resumed metformin -A1C is 9.3 - Lantus -ADA diet -asked nursing staff to teach her how to check glucoses and give herself insulin -she is concerned about using insulin and being homeless and people getting a hold of syringes * hypertension -resumed Norvasc and lisinopril * nicotine dependence -doesn't want a patch; realizes this is affecting her health -she smokes when she is stressed *plan: dc with oxygen, reviewed w her the importance of use of oxygen, being on an ADA diet Subjective: Yessica is feeling much better today Objective: Vital Signs Temp Pulse Resp BP Pulse Ox 36.8 C 75 16 143/85 H 94 11/22/18 11:08 11/22/18 11:08 11/22/18 11:08 11/22/18 11:08 11/22/18 11:08 Laboratory Results 11/20/18 04:00 11/22/18 04:43 11/21/18 11/22/18 11/23/18 05:59 05:59 05:59 Intake Total 400 1250 Balance 400 1250 - Physical Exam Constitutional: no apparent distress Eyes: PERRL Ears, Nose, Mouth, Throat: hearing normal Cardiovascular: regular rate and rhythym Respiratory: no respiratory distress, reduced air movement (bases, but is moving air much better throughout her lungs) Skin: warm, normal color Musculoskeletal: full muscle strength Neurologic: AAOx3 Psychiatric: interacting appropriately ICD10 Worksheet Patient Problems: Problems Problem Status Onset Chronic obstructive pulmonary disease with acute exacerbation Acute Exacerbation of asthma Acute Pneumonia Acute
--- NOTE | 2018-11-22 13:30 | PDHOMEO2F ---
Home Oxygen Face to Face Home Orders: I certify that a physician or a nurse practitioner or physician's senior agricultural assistant has had a jyut-bg-jnme encounter with this patient on the date of this order due to the diagnosis listed, which relates to the primary reason the patient requires home oxygen. Alternative treatments have been tried, or considered, and deemed ineffective. It is anticipated that supplemental oxygen will result in improvement with treatment. Home oxygen qualifying diagnosis: copd exacerbation Home oxygen secondary diagnosis: asthma SpO2 on room air (%): 59% Frequency of home oxygen needed: continuous Home oxygen liters per minute: 2 Home oxygen delivery device: nasal cannula Concentrator: Yes E-tanks for mobility and back up: Yes If ordering portable O2, is the patient mobile in the home?: Yes I certify that, based on these findings, the home oxygen is medically necessary for this patient for the following length of time. Length of time home oxygen needed: 99 years
--- NOTE | 2018-11-22 13:58 | GDS ---
[f rep st] DISCHARGE SUMMARY DISCHARGE DIAGNOSES: 1. Acute hypoxemic respiratory failure. 2. Mtlyhrcz-yx-atrhjv chronic obstructive pulmonary disease exacerbation. 3. Acute asthma exacerbation. 4. Diabetes type 2 with high glucoses. 5. Hypertension. 6. Nicotine dependence. CONSULTATION: Dr. Danny Chester. Briefly, the patient is a 52-year-old female with history of asthma, tobacco dependence, diabetes, depression, hypertension, hyperlipidemia, and homelessness who presented to the emergency department with complaints of severe shortness of breath and found to be cyanotic. This is her 3rd admission this month. She was seen and evaluated by Dr. Danny Chester who noted that she has jiequidg-yv-mbwqfu COPD. Recommendation throughout her stay was to stop smoking. In addition, she has had extremely high glucoses with an elevated A1c. It is difficult for her to use syringes because she is homeless and is concerned other people will bother her. Encouraged her to stay on the ADA diet and follow up with a PCP. HOSPITAL COURSE: 1. Acute hypoxemic respiratory failure, markedly better. She is moving oxygen much better throughout her lungs. She is down to 1 to 1.5 L. 2. Vcqxsicq-no-aubybq COPD exacerbation. Will slowly wean her off the prednisone. 3. Acute asthma exacerbation. Her x-ray does not show any type of infiltrate. 4. Diabetes type 2. A1c is 9.3. Hopefully her sugars will get much better once off the prednisone. Continue Metformin and added Lantus. 5. Hypertension, on Norvasc and lisinopril. 6. Nicotine dependence. She says she smokes when she gets stressed. Encouraged her to talk to her primary care doctor in regard to a medication that would help her with this. DISCHARGE CONDITION: Stable. Blood pressure is 143/85, heart rate is 75, respiratory rate is 16, O2 sats on 1 L are 94%, temperature is 36.8 Celsius. MEDICATIONS AT DISCHARGE: Please see the EMR. DISCHARGE INSTRUCTIONS: 1. No smoking around the oxygen tank. The hospital will provide her with oxygen. 2. Her scripts were all sent to [facility]. 3. Follow up with Dr. Chester if she has further issues with COPD. 4. A glucometer was given to her from the hospital. Will have her check her glucoses TID. A script for Lantus was sent. TIME SPENT: Greater than 30 minutes discharging and coordinating the patient. /[id number]/MODL MTDD
--- NOTE | 2018-11-22 15:34 | ASMTLACE ---
LACE Length of stay for Answers: 2 days current admission Acuity / Level of Answers: No Care: Did the patient have an inpatient admission? Comorbidities - select Answers: Chronic pulmonary disease all that apply Diabetes (uncontrolled or controlled) Other Notes: HTN; HLD # of Emergency department Answers: 3-4 visits in the last 6 months Social determinants Answers: Homelessness (street, detention) Mental health diagnosis (anxiety, depression, pers onality disorders, etc.) Score: 15 Date Signed: 11/22/2018 03:33 PM Electronically Signed By:KATIE Bryant
--- NOTE | 2018-11-22 15:48 | ASDISCHSUM ---
Discharge Information Plan Status:Homeless/Skilled Nursing Medically Cleared to Leave:11/22/2018 Discharge Date:11/22/2018 CM D/C Disposition:Home, Routine, Self-Care ADT D/C Disposition: Projected Discharge Date:11/22/2018 Transportation at D/C:Family Discharge Delay Reason: Follow-Up Date:11/22/2018 Discharge Slot: Final Diagnosis: Placement Information Patient Contact Information Contact Name:MORGAN Relationship:Matthias Address:[address] Work Phone: City:[place] Alternate Phone: State/Zip Code:[place] [address] Email: Financial Information Financial Class:Medicare Advantage Plans Primary Plan Desc:[employer] ADVANTAGE Primary Plan Number:[id number] Secondary Plan Desc: Secondary Plan Number: Assessment Information LACE LACE Length of stay for Answers: 2 days current admission Acuity / Level of Answers: No Care: Did the patient have an inpatient admission? Comorbidities - select Answers: Chronic pulmonary disease all that apply Diabetes (uncontrolled or controlled) Other Notes: HTN; HLD # of Emergency department Answers: 3-4 visits in the last 6 months Social determinants Answers: Homelessness (street, fpc) Mental health diagnosis (anxiety, depression, pers onality disorders, etc.) Score: 15 Date Signed: 11/22/2018 03:33 PM Electronically Signed By:KATIE Bryant [facility] JESSICA Progress Note JESSICA Note JESSICA Note Notes: JESSICA spoke at length with pt and her son in the room. Pt admitted for the third time in three weeks for hypoxia. On last discharge CM connected pt with [facility] and she has been spending her nights at the [facility]. Pt came from [place], [place] with her son and they have been living in her car. Her son is employed. She brought her own O2 concentrator from [place] which she only needed at night previously. However pt needs O2 now during the day and is unable to plug the concentrator in at the fpc during the day and it drains the car battery too much. On last discharge, CM connected pt with [facility] for home O2 to be delivered at the fpc as she needs it during the day. Pt reported that with her [place]-based Medicare, [facility] wanted to charge her $120 for tanks to use during the day and she doesn't have that [place] until her disability check comes in on December 06. CM offered to apply for [facility] medicaid for pt and connect her with a chcf care facility for permanent housing, but pt is not willing to live away from her son nor ready to give up her privacy. [email or web address] confirmed they applied for [place] Medicaid for pt on last admission. Perhaps on this admission, home O2 can be reordered and covered by Medicaid. Pt will need follow up appointment with PCP [facility] Kimmy Cobb NP. CM to follow. D/C Plan: [facility] with access to day O2 and follow up with [facility]. Date Signed: 11/20/2018 05:03 PM Electronically Signed By:Rosa Abebe [facility] CM Progress Note CM Note CM Note Notes: Addendum to note 11/20, please see that note for details: Pt's [place] Medicaid is not yet established and will not be until pt provides proper paperwork to [employer], which has been requested. RT contacted [facility] and determined that pt will need to pay [facility] $120 for new concentrator and tanks in order to have tanks delivered to [facility] for day use. CM will need to call [facility] on Saturday and find out if they can bill [facility] Case Management department for a one time order for tanks and concentrator for a total of $120. If this is not possible, pt will need to discharge and plug her O2 concentrator in at a coffee shop or the library during the day. Pt has also been advised that she needs to stop smoking immediately. D/C Plan: Homeless [facility]pc Date Signed: 11/21/2018 05:14 PM Electronically Signed By:Rosa Abebe Intervention Information
--- NOTE | 2018-11-22 16:46 | SOAPPROG ---
SOAP Progress Note Assessment/Plan: Assessment: COPD. Severe. Reversibility present. Hypoxemia: Secondary to the above. Noncompliance with oxygen and nebulized treatments may be an issue going forward secondary to or lifestyle, living out of her car at times, etc. Diabetes mellitus: Blood sugars high, on coverage and metformin. Steroids certainly playing a role. Agree with decreased prednisone to 40. Hopefully inhaled steroids will be of benefit and we can avoid repeat need for prednisone. Hyponatremia: Mild. In part related to high blood sugars. Plan: Agree with discharge today. Would check room air saturations at rest. May not need oxygen at rest when doing well. Lifestyle issues, living out of her car, possible noncompliance with medications all remain big issues for this patient with severe underlying lung disease. She does have a nebulizer in can uses as an outpatient from her car with an adapter which she has. It may be reasonable to send her home with Symbicort 2 inhalations twice a day. Nebulized budesonide can be used if she is unable to take Symbicort. Discussed with patient and hospitalist. We can see her back in the office some point if she ends up staying in this community. Subjective: No complaints. Denies cough or significant shortness of breath. Objective: Vital Signs Temp Pulse Resp BP Pulse Ox 36.8 C 76 18 143/85 H 93 11/22/18 11:08 11/22/18 16:10 11/22/18 16:10 11/22/18 11:08 11/22/18 16:10 Laboratory Results 11/20/18 04:00 11/22/18 04:43 11/21/18 11/22/18 11/23/18 05:59 05:59 05:59 Intake Total 400 1250 Balance 400 1250 Spirometry showed SEVERE obstructive lung disease with improvement after bronchodilator. FEV1 well less than 1 L. Physical Exam - Physical Exam General Appearance: alert, no apparent distress EENT: other (Oxygen in place at 1 L) Neck: normal inspection (No JVD) Respiratory: lungs clear, decreased breath sounds (Bilaterally. Very distant compatible with severe COPD/emphysema), prolonged expiration, No rales, No rhonchi Cardiac/Chest: regular rate, rhythm, other (Probable increased P2), No gallop Abdomen: normal bowel sounds, non-tender, soft Skin: normal color, warm/dry Extremities: pedal edema (Trace +) Neuro/Psych: no motor/sensory deficits, No cognition abnormalities ICD10 Worksheet Patient Problems: Problems Problem Status Onset Pneumonia Acute Exacerbation of asthma Acute Chronic obstructive pulmonary disease with acute exacerbation Acute
== END 2018-11-22 17:36 | disposition home or self-care (01) ==
LOC: F3E 06:32
PROVIDERS: ADMIT Family Medicine; ATTEND Internal Medicine
DX: J96.01 Acute respiratory failure with hypoxia (principal); J44.1 Chronic obstructive pulmonary disease with (acute) exacerbation; J45.901 Unspecified asthma with (acute) exacerbation; Z99.81 Dependence on supplemental oxygen; E11.65 Type 2 diabetes mellitus with hyperglycemia; Z79.84 Long term (current) use of oral hypoglycemic drugs; I10 Essential (primary) hypertension; F17.210 Nicotine dependence, cigarettes, uncomplicated; Z59.0 Homelessness; Z23 Encounter for immunization; E66.09 Other obesity due to excess calories; Z68.31 Body mass index [BMI] 31.0-31.9, adult; E78.5 Hyperlipidemia, unspecified
CPT/HCPCS: 71046; 90471; 90732; 96372; 96374; 96375; 96376; 99285; G0009; G0378; J1650; J1815; J2920; J2930; J3475; J7512; J7626; 82947-QW

== ENCOUNTER 2018-12-27 00:36 | Emergency (ER) | payer OTHER | END 2018-12-27 03:01 | disposition short-term general hospital (02) ==